=== PATIENT | male | born 1945 | race Caucasian/White ===

== ENCOUNTER → 2020-10-03 11:17 | Outpatient (CLI) | payer MEDICARE, SELFPAY ==
--- NOTE | ~2020-10-03 | XR_ITS ---
EXAMINATION: XR chest 2V EXAM DATE: 10/03/2020 11:39 INDICATION: R05 - Cough . TECHNIQUE: Frontal and lateral projections of the chest obtained and reviewed. There is no prior padmaja dy for comparison. FINDINGS: The lungs are clear. There are no pleural effusions. The cardiomediastinal silhouette is within normal limits. There is no pneumothorax suspected. Mild to moderate thoracic spondylosis. IMPRESSION: No acute cardiopulmonary findings. Reviewed, dictated and finalized at location B. 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
== END ==
PROVIDERS: PCP Family Medicine; Visit Provider Nurse Practitioner
DX: R05 Cough (principal)
CPT/HCPCS: 71046

== ENCOUNTER 2022-08-08 05:43 | Emergency (ER) | payer MEDICARE, SELFPAY ==
--- NOTE | ~2022-08-08 | XR_ITS ---
EXAMINATION: XR chest 2V DATE: 08/08/2022 06:36 INDICATION: Cough. TECHNIQUE: Frontal and lateral views of the chest were obtained. COMPARISON: Chest 2 views 10/03/2020 FINDINGS: There are mild airspace opacities in the lower lung zones. No pleural effusion or pneumotho rax. The heart size is normal. IMPRESSION: 1. Mild airspace opacities in the lower lung zones, consistent with atelectasis versus pneumonia. Reviewed, dictated and finalized at location A.
[2022-08-08 05:47] VITALS: BP 170/80; PULSE 89; RESP 18; TEMP 36.9; O2SAT 97
--- NOTE | 2022-08-08 06:09 | PC.NURSE ---
COVID and Flu swab done and sent to lab at 06:08
--- NOTE | 2022-08-08 06:11 | ED.GENADULT ---
HPI - General Adult General Chief complaint: Upper Respiratory Infection Stated complaint: cough, neck pain Time Seen by Provider: 08/08/22 05:45 History of Present Illness HPI narrative: 76-year-old male presenting the emergency department for evaluation of cough and congestion for approximately 2 weeks and a sore neck that started 2 days ago. Patient reports 2 days ago he woke up and felt he was sleeping on his back without a pillow. Patient noticed that he had increased soreness of his neck and the symptoms have persisted. Patient denies any falls or injuries, patient denies any associated numbness or weakness. Related Data Home Medications Medication Instructions Recorded Confirmed multivitamin 1 tablet PO DAILY 10/04/19 12/12/21 cholecalciferol (vitamin D3) 50 50 mcg PO DAILY 12/11/20 12/12/21 mcg (2,000 unit) capsule omega 3 350 mg-dha 235 mg-epa 90 cap PO .qd 02/14/21 12/12/21 mg-fish oil 597 mg capsule,delay rel ([place]-3) Allergies Allergy/AdvReac Type Severity Reaction Status Date / Time No Known Allergies Allergy Verified 08/08/22 05:52 Review of Systems Review of Systems: CONSTITUTIONAL: Denies fever, chills, or sweats. EYES: Denies visual changes, redness, or discharge. ENT: Denies rhinorrhea, congestion, sore throat, or otalgia. CARDIOVASCULAR: Denies chest pain, palpitations, or edema. RESPIRATORY: See HPI GASTROINTESTINAL: Denies abdominal pain, nausea, vomiting, or diarrhea. GENITOURINARY: Denies dysuria or hematuria. SKIN: Denies rash or itching. MUSCULOSKELETAL: See HPI NEUROLOGIC: Denies headache, numbness, or weakness. [facility] Past Medical History Medical History Chronic low back pain without sciatica Dyslipidemia Heart murmur Unspecified osteoarthritis, unspecified site Surgical History Surgical History History of arthroscopic knee surgery 2013 right knee meniscus repair History of bilateral inguinal hernia repair 1995 History of discectomy (~1990) L4-L5 History of umbilical hernia repair 1995 Family History Family History Mother Diabetes mellitus, Onset Age: 92 Social History Social History Tobacco type: cigarettes Second hand tobacco smoke exposure: No Smoking end date: 10/05/04 Alcohol intake: current Alcohol use details: 2 beers or 2 glasses of wine consumed occasionally Substance use: never Substance use type: does not use Exam Narrative: APPEARANCE: Well appearing, no pain, no distress, well-nourished. HEAD: normocephalic, atraumatic. EYES: PERRLA/EOMI, conjunctivae clear. NOSE: Normal no drainage NECK: Supple. No adenopathy, no masses. RESPIRATORY: Airway patent, respirations nonlabored. Clear to auscultation bilaterally, no rales, rhonchi, wheezing. CARDIOVASCULAR: Regular rate and rhythm without murmurs rubs or gallops. ABDOMINAL: Soft, nontender, nondistended, normal bowel sounds MUSCULOSKELETAL: Moves all extremities. Strength/ROM intact, No edema, No calf tenderness. No midline neck tenderness to palpation. Tenderness of the lateral neck muscles and into shoulders. NEURO: Alert. Cranial nerves II through XII intact. Good gait. Good coordination SKIN: Warm, dry. Normal Color PSYCHIATRIC: Normal affect/mood. Course Course Emergency Course: Chest x-ray showed atelectasis versus pneumonia. Patient did feel improved with treatment. Patient was encouraged of close follow-up with his primary care physician. All questions and concerns were addressed. Vital Signs Vital signs: Vital Signs Temperature 98.5 F 08/08/22 05:47 Pulse Rate 89 08/08/22 05:47 Respiratory Rate 18 08/08/22 05:47 Blood Pressure 170/80 H 08/08/22 05:47 Pulse Oximetry 97 08/08/22 05:47 Oxygen Delivery Room Air
[2022-08-08] MEDS: HYDROcodone/acetaminophen (*CRX) 5-325 MG TABLET 1 TAB PO (06:24)
[2022-08-08] MEDS: KETOROLAC 30 MG/ML VIAL (*BKC) IM (06:25)
[2022-08-08] MEDS: CYCLOBENZAPRINE HCL 10 MG TABLET PO (06:40)
[2022-08-08 06:48] LABS: Influenza A QL RT-PCR Negative (Negative); Influenza B QL RT-PCR Negative (Negative); SARS-CoV-2 RNA PCR Negative
[2022-08-08 07:16] VITALS: BP 136/68; PULSE 73; RESP 14; O2SAT 92
== END 2022-08-08 07:18 | disposition home or self-care (01) ==
PROVIDERS: Emergency Provider Emergency Medicine; PCP Family Medicine
DX: R05.9 Cough, unspecified (principal); M43.6 Torticollis; Z20.822 Contact with and (suspected) exposure to COVID-19; E78.5 Hyperlipidemia, unspecified; M19.90 Unspecified osteoarthritis, unspecified site; Z87.891 Personal history of nicotine dependence
CPT/HCPCS: 71046; 87502; 96372; 99283; A9270; J1885; U0003; U0005

== ENCOUNTER 2023-04-30 12:33 | Outpatient (CLI) | payer MEDICARE, SELFPAY ==
--- NOTE | ~2023-04-30 | US_ITS ---
EXAMINATION: US venous doppler [facility] DATE: 04/30/2023 13:16 INDICATION: Left lower limb pain. Other specified soft tissue disorders TECHNIQUE: Grayscale ultrasound images without and with compression and Doppler ultrasound images of the left lower extremity veins were obtained. COMPARISON: 01/08/2012 FINDINGS: The visualized portions of left common femoral vein, profunda (deep) femoral vein, femoral vein, popl iteal vein, peroneal veins, posterior tibial veins, gastrocnemius vein and greater saphenous vein out flow are patent. IMPRESSION: 1. No deep venous thrombosis in the left lower limb. Reviewed, dictated and finalized at location A.
== END 2023-04-30 12:34 | disposition home or self-care (01) ==
PROVIDERS: PCP Family Medicine; Visit Provider Nurse Practitioner Family
DX: M79.89 Other specified soft tissue disorders (principal)
CPT/HCPCS: 93971

== ENCOUNTER 2023-08-13 01:30 | Emergency (ER) | payer MEDICARE, SELFPAY ==
--- NOTE | ~2023-08-13 | CT_ITS ---
CT of the Abdomen and Pelvis: Indication: Left flank pain Technique: 2.5 mm axial scans were obtained through the abdomen and pelvis following intravenous adm inistration of 100 cc of Omnipaque 350. Dose reduction technique was used on this scan by utilizing a utomated exposure control and iterative reconstruction technique. The dose-length product (DLP) was 1 253.57 mGy-cm. Findings: Scans through the lung bases are unremarkable. Small hepatic cysts are present. The spleen, pancreas, gallbladder, and adrenal glands are within nor mal limits. There is a 6 mm stone at the proximal left ureter, with mild left hydroureteronephrosis. There are right parapelvic renal cysts. No definite right hydronephrosis. No right ureteral stone. Th ere are atherosclerotic calcifications of the aorta. No lymphadenopathy. No bowel obstruction or bowel wall thickening. Normal appendix. Images through the pelvis were performed. Urinary bladder unremarkable. Prostate gland is mildly enla rged. No ascites. Impression: 6 mm proximal left ureteral stone with mild left hydronephrosis. Reviewed, dictated and finalized at [facility]. E SET UP PERSON Impression: 6 mm proximal left ureteral stone with mild left hydronephrosis.
[2023-08-13 01:36] VITALS: BP 164/73; PULSE 71; RESP 18; TEMP 36.9; O2SAT 98
[2023-08-13 02:00] VITALS: BP 149/77; PULSE 71; RESP 17; O2SAT 97
--- NOTE | 2023-08-13 02:08 | ED.GENADULT ---
HPI - General Adult General Chief complaint: Urogenital-Male <Richie Mathis PA-C - Last Filed: 08/13/23 03:27> Stated complaint: flank pain <VALDEZ Dominguez Last Filed: 08/13/23 03:27> Time Seen by Provider: 08/13/23 01:57 <VALDEZ Dominguez Last Filed: 08/13/23 03:27> Source: patient <VALDEZ Dominguez Last Filed: 08/13/23 03:27> Mode of arrival: ambulatory <VALDEZ Dominguez Last Filed: 08/13/23 03:27> Limitations: no limitations <VALDEZ Dominguez Last Filed: 08/13/23 03:27> History of Present Illness HPI narrative: This is a 77-year-old male who presents to the ED with chief complaint of left flank pain onset yesterday and worse today. Reports that symptoms have been intermittent but starting to become significantly worse tonight. Reports pain is strictly limited to the left flank and pain is a 7 out of 10 right now. States he has never had anything like this before and has no history of stones. States he has frequent nocturia but this is not new for him. He also notes that today while trying to eat a piece of toast, he became nauseous and had 1 episode of vomiting. Denies dysuria, hematuria, fevers, chills, abdominal pain, chest pain, shortness of breath, cough, problems with bowel movements. <Richie Mathis PA-C - Last Filed: 08/13/23 03:27> Related Data Home medications: Home Medications Medication Instructions Recorded Confirmed multivitamin 1 tablet PO DAILY 10/04/19 04/30/23 cholecalciferol (vitamin D3) 50 50 mcg PO DAILY 12/11/20 04/30/23 mcg (2,000 unit) capsule omega 3 350 mg-dha 235 mg-epa 90 cap PO .qd 02/14/21 04/30/23 mg-fish oil 597 mg capsule,delay rel ([place]-3) <VALDEZ Dominguez Last Filed: 08/13/23 03:27> Allergies/adverse reactions: Allergies Allergy/AdvReac Type Severity Reaction Status Date / Time No Known Allergies Allergy Verified 08/13/23 02:03 <Richie Mathis PA-C - Last Filed: 08/13/23 03:27> Review of Systems Review of Systems: All systems as dictated in HPI <Richie Mathis PA-C - Last Filed: 08/13/23 03:27> [facility] Past Medical History Medical History: Medical History (Updated 08/13/23 @ 06:17 by Michael Pandya MD) Chronic low back pain without sciatica Dyslipidemia Heart murmur Left leg swelling Unspecified osteoarthritis, unspecified site Ventral hernia <Richie Mathis PA-C - Last Filed: 08/13/23 03:27> Surgical History Surgical History: Surgical History History of arthroscopic knee surgery (~2013) 2013 right knee meniscus repair History of bilateral inguinal hernia repair (~1995) 1995 History of discectomy (~1990) L4-L5 History of tonsillectomy (~1950) History of umbilical hernia repair (~1995) 1995 <Richie Mathis PA-C - Last Filed: 08/13/23 03:27> Family History Family History: Family History Mother Diabetes mellitus, Onset Age: 92 <Richie Mathis PA-C - Last Filed: 08/13/23 03:27> Social History Social History: Social History (Updated 04/30/23 @ 11:29 by Pierre Greene MA) Smoking status: Never smoker Tobacco type: cigarettes Second hand tobacco smoke exposure: No Smoking end date: 10/05/94 Alcohol intake: current Alcohol use details: 2 beers or 2 glasses of wine consumed occasionally Substance use: never Substance use type: does not use Lack of Transportation: No Lack of Food: Never True Current Housing: I Have Housing Concerned About Future Housing: No Difficulty Paying Gas/Electric Bills: No Difficulty Paying for Meds: No Currently Unemployed: No Education: High School Diploma/GED Difficulty w/ Childcare or Family Care: No <Richie Mathis PA-C - Last Filed: 08/13/23 03:27> Exam Narrative: GENERAL: Well-appearing, well-nourished, and i
[2023-08-13] MEDS: MORPHINE SULFATE (*CRX) 4 MG/ML INJ IV PUSH (02:24)
[2023-08-13] MEDS: ONDANSETRON INJ 4 MG/2 ML VIAL IV PUSH (02:25)
[2023-08-13 02:46] LABS: Basophils Percent Auto 0.2 % (0.2-1.2); Eosinophils Percent Auto 0.3 % (0-4.4); Hematocrit 43.3 % (42.0-52.0); Immature Granulocyte Absolute 0.03 K/mm3 (0.00-0.031); Immature Granulocyte Percent A 0.3 % (0-0.5); Lymphocytes Percent Auto 6.8 % (18.3-44.2); Mean Corpuscular HGB Conc 32.3 g/dl (32-36); Mean Corpuscular Hemoglobin 29.2 pg (26-34); Mean Corpuscular Volume 90.4 fl (80-100); Mean Platelet Volume 9.9 fl (7.4-10.4); Monocytes Absolute Auto 0.7 K/mm3 (0.1-0.6); Monocytes Percent Auto 7.4 % (2.6-8.5); Neutrophils Absolute Auto 7.5 K/mm3 (1.3-6.7); Platelet Count Result 176 k/mm3 (150-375); Red Blood Count 4.79 M/mm3 (4.6-6.20); Red Cell Distribution Width 12.9 % (11.5-14.5); White Blood Count 8.8 K/mm3 (4.5-10.0)
[2023-08-13 02:53] LABS: Alanine Aminotransferase 25 U/L (6-50); Albumin Level 4.2 g/dL (3.5-5.1); Alkaline Phosphatase 60 U/L (38-126); Anion Gap 3 mmol/L (8-16); Aspartate Amino Transferase 29 U/L (17-59); Bilirubin,Total 1.1 mg/dL (0.2-1.3); Blood Urea Nitrogen 20 mg/dL (9-20); Calcium 9.2 mg/dL (8.4-10.2); Carbon Dioxide 31 mmol/L (22-30); Chloride 103 mmol/L (98-107); Estimated CRCL calculation 58 ml/min; Estimated Glomerular Filt Rate > 60; Glucose 123 mg/dL (65-110); Potassium 3.8 mmol/L (3.4-5.0); Sodium 137 mmol/L (137-145)
[2023-08-13 04:00] VITALS: BP 145/70; PULSE 50; RESP 18; O2SAT 96
[2023-08-13 04:01] LABS: Appearance Urine Cloudy (Clear); Bacteria Urine None Seen /hpf; Bilirubin Urine Negative (Negative); Blood Urine 3+ (Negative); Color Urine Yellow (Yellow); Glucose Urine UA Negative (Negative); Ketones Urine 1+ mg/dL (Negative); Leukocyte Esterase Ur Negative LEU/UL (Negative); Need Manual Microscopic Reviewed; Nitrate Urine Negative (Negative); Non Pathogenic Casts 0-2; Protein Urine Trace mg/dL (Negative); RBC Urine >100 /hpf (0-2); Specific Grav Ur 1.022 (1.001-1.035); Squamous Epithelial Cell Urine None seen /hpf (Few); WBC Urine 0-5 /hpf
[2023-08-13 04:02] LABS: Add Urine Microscopic? YES
[2023-08-13 05:54] VITALS: BP 149/70; PULSE 51; O2SAT 97
[2023-08-13] MEDS: TAMSULOSIN HCL 0.4 MG CAPSULE PO (06:53)
== END 2023-08-13 06:57 | disposition home or self-care (01) ==
PROVIDERS: Physician Assistant; Emergency Provider Emergency Medicine; PCP Family Medicine
DX: N13.2 Hydronephrosis with renal and ureteral calculous obstruction (principal); E78.5 Hyperlipidemia, unspecified; M19.90 Unspecified osteoarthritis, unspecified site; Z87.891 Personal history of nicotine dependence
CPT/HCPCS: 36415; 74177; 80053; 81001; 85025; 96374; 96375; 99284; A9270; J2270; J2405; Q9967

== ENCOUNTER 2023-08-13 16:20 | Day surgery (SDC) | payer MEDICARE, SELFPAY ==
--- NOTE | ~2023-08-13 | XR_ITS ---
EXAMINATION: XR stent kub - surgery DATE: 08/13/2023 18:06 INDICATION: Left ureteral stone. TECHNIQUE: 2 intraoperative fluoroscopic views of the abdomen and pelvis were obtained. I was not pre sent. Fluoroscopy exposure time was 21 seconds. COMPARISON: CT abdomen and pelvis 08/13/2023 FINDINGS: There is a left internal ureteral stent in expected position. IMPRESSION: 1. Left internal ureteral stent in expected position. Reviewed, dictated and finalized at location E. MS MANAGER
[2023-08-13 16:27] VITALS: BP 167/67; PULSE 64; RESP 16; TEMP 36.3; O2SAT 99
[2023-08-13 16:48] VITALS: PULSE 69; RESP 17; O2SAT 98
[2023-08-13 17:00] LABS: Basophils Percent Auto 0.2 % (0.2-1.2); Eosinophils Percent Auto 0.2 % (0-4.4); Hematocrit 43.5 % (42.0-52.0); Hemoglobin 14.3 g/dL (14.0-18.0); Immature Granulocyte Absolute 0.03 K/mm3 (0.00-0.031); Immature Granulocyte Percent A 0.3 % (0-0.5); Lymphocytes Absolute Auto 0.52 K/mm3 (0.9-3.2); Lymphocytes Percent Auto 5.1 % (18.3-44.2); Mean Corpuscular HGB Conc 32.9 g/dl (32-36); Mean Corpuscular Hemoglobin 29.7 pg (26-34); Mean Corpuscular Volume 90.2 fl (80-100); Mean Platelet Volume 9.6 fl (7.4-10.4); Monocytes Absolute Auto 0.7 K/mm3 (0.1-0.6); Monocytes Percent Auto 7.1 % (2.6-8.5); Neutrophils Absolute Auto 8.9 K/mm3 (1.3-6.7); Neutrophils Percent Auto 87.1 % (45.5-73.1); Platelet Count Result 180 k/mm3 (150-375); Red Blood Count 4.82 M/mm3 (4.6-6.20); White Blood Count 10.2 K/mm3 (4.5-10.0)
--- NOTE | 2023-08-13 17:03 | ED.MALEGU ---
HPI - Male Genitourinary General Chief complaint: Urogenital-Male Stated complaint: kidney stone pain Time Seen by Provider: 08/13/23 16:46 History of Present Illness HPI Narrative: 77-year-old male reports for evaluation for intractable pain secondary to kidney stone. Patient was seen in the ED last night for left flank pain. He was found of a 6 mm proximal left ureteral stone and was discharged home with Flomax, pain and nausea control. He followed up today with Dr. Neo's NUB CARD TENDER, [place], who advised the patient to come to the ED for intervention given patient's intractable pain. Patient states his pain is currently 9 out of 10. He reports nausea but no emesis since his discharge earlier this morning. Denies fever, urinary frequency or urgency, hematuria or dysuria. Related Data Home Medications Medication Instructions Recorded Confirmed multivitamin 1 tablet PO DAILY 10/04/19 04/30/23 cholecalciferol (vitamin D3) 50 50 mcg PO DAILY 12/11/20 04/30/23 mcg (2,000 unit) capsule omega 3 350 mg-dha 235 mg-epa 90 cap PO .qd 02/14/21 04/30/23 mg-fish oil 597 mg capsule,delay rel ([place]-3) Allergies Allergy/AdvReac Type Severity Reaction Status Date / Time No Known Allergies Allergy Verified 08/13/23 16:28 Review of Systems Review of Systems: CONSTITUTIONAL: Denies fever, chills EYES: Denies visual changes, redness, or discharge. ENT: Denies rhinorrhea, congestion, sore throat, or otalgia. CARDIOVASCULAR: Denies chest pain, palpitations, or edema. RESPIRATORY: Denies cough or dyspnea. GASTROINTESTINAL: See HPI GENITOURINARY: See HPI SKIN: Denies rash or itching. MUSCULOSKELETAL: Denies back pain, joint pain, or myalgia. NEUROLOGIC: Denies headache, numbness, dizziness, or weakness. PSYCHIATRIC: Denies anxiety or depression. [facility] Past Medical History Medical History Chronic low back pain without sciatica Dyslipidemia Heart murmur Left leg swelling Unspecified osteoarthritis, unspecified site Ventral hernia Surgical History Surgical History History of arthroscopic knee surgery (~2013) 2014 right knee meniscus repair History of bilateral inguinal hernia repair (~1995) 1995 History of discectomy (~1990) L4-L5 History of tonsillectomy (~1950) History of umbilical hernia repair (~1995) 1995 Family History Family History Mother Diabetes mellitus, Onset Age: 92 Social History Social History Smoking status: Never smoker Tobacco type: cigarettes Second hand tobacco smoke exposure: No Smoking end date: 10/05/94 Alcohol intake: current Alcohol use details: 2 beers or 2 glasses of wine consumed occasionally Substance use: never Substance use type: does not use Lack of Transportation: No Lack of Food: Never True Current Housing: I Have Housing Concerned About Future Housing: No Difficulty Paying Gas/Electric Bills: No Difficulty Paying for Meds: No Currently Unemployed: No Education: High School Diploma/GED Difficulty w/ Childcare or Family Care: No Exam Narrative: GENERAL: Well-appearing, in no acute distress. Patient resting comfortably in exam bed. He is pleasant and conversational. HEAD: Normocephalic EYES: PERRLA ENT: Nares clear. Mucous membranes moist. Oropharynx without tonsillar hypertrophy exudate or other lesions. NECK: Supple. CHEST: No respiratory distress. Clear to auscultation, no adventitious breath sounds. HEART: Regular rate and rhythm. No murmur heard. Normal peripheral pulses. ABDOMEN: Soft, nontender, normal active bowel sounds. Mild left CVA tenderness. No overlying skin changes. No guarding, rebound or rigidity. EXTREMITIES: Normal range of motion. No edema. SKIN: Warm, dry, no rash. NEURO:
[2023-08-13] MEDS: MORPHINE SULFATE (*CRX) 2 MG/ML INJ IV PUSH (17:07)
[2023-08-13 17:08] LABS: Alanine Aminotransferase 25 U/L (6-50); Albumin Level 4.4 g/dL (3.5-5.1); Alkaline Phosphatase 62 U/L (38-126); Anion Gap 8 mmol/L (8-16); Aspartate Amino Transferase 30 U/L (17-59); Bilirubin,Total 1.1 mg/dL (0.2-1.3); Blood Urea Nitrogen 19 mg/dL (9-20); Calcium 8.9 mg/dL (8.4-10.2); Carbon Dioxide 29 mmol/L (22-30); Chloride 103 mmol/L (98-107); Estimated CRCL calculation 50 ml/min; Estimated Glomerular Filt Rate 54; Glucose 113 mg/dL (65-110); Sodium 140 mmol/L (137-145)
--- NOTE | 2023-08-13 17:15 | WPDANESEPP ---
Anes - Eval Pre Procedure Procedure: Operation Date: 08/13/23 18:00 Proposed Procedures p Cystoscopy with left stent placement(Left) - Angel Naqvi MD Date/Time: 08/13/23 17:15 Pre Op Diagnosis: kidney stone pain Patient Data Age: 77 Gender: M Height: 1.78 m Weight: 96 kg Last Vital Signs Temp 36.3 C L 08/13/23 16:27 Pulse 69 08/13/23 16:48 Resp 17 08/13/23 16:48 BP 167/67 H 08/13/23 16:27 Pulse Ox 98 08/13/23 16:48 Allergies Allergy/AdvReac Type Severity Reaction Status Date / Time No Known Allergies Allergy Verified 08/13/23 16:28 Home Medications Medication Instructions Recorded Confirmed Type multivitamin 1 tablet PO DAILY 10/04/19 04/30/23 History cholecalciferol (vitamin D3) 50 50 mcg PO DAILY 12/11/20 04/30/23 History mcg (2,000 unit) capsule omega 3 350 mg-dha 235 mg-epa 90 cap PO .qd 02/14/21 04/30/23 History mg-fish oil 597 mg capsule,delay rel ([place]-3) simvastatin 40 mg tablet 40 mg PO QHS #90 tabs 04/20/23 Rx hydrocodone 5 mg-acetaminophen 325 1 tablet PO Q6H PRN pain 3 days 08/13/23 Rx mg tablet #12 tabs ondansetron 4 mg disintegrating 4 mg PO Q8H PRN nausea and 08/13/23 Rx tablet vomiting #10 tabs tamsulosin 0.4 mg capsule (Flomax) 0.4 mg PO DAILY #10 caps 08/13/23 Rx Laboratory Tests 08/13/23 16:51 WBC 10.2 H K/mm3 (4.5-10.0) RBC 4.82 M/mm3 (4.6-6.20) Hgb 14.3 g/dL (14.0-18.0) Hct 43.5 % (42.0-52.0) MCV 90.2 fl (80-100) MCH 29.7 pg (26-34) MCHC 32.9 g/dl (32-36) RDW 13.0 % (11.5-14.5) Plt Count 180 k/mm3 (150-375) MPV 9.6 fl (7.4-10.4) Immature Gran % (Auto) 0.3 % (0-0.5) Neut % (Auto) 87.1 H % (45.5-73.1) Lymph % (Auto) 5.1 L % (18.3-44.2) [place] % (Auto) 7.1 % (2.6-8.5) Eos % (Auto) 0.2 % (0-4.4) Baso % (Auto) 0.2 % (0.2-1.2) Lymph # (Auto) 0.52 L K/mm3 (0.9-3.2) [place] # (Auto) 0.7 H K/mm3 (0.1-0.6) Eos # (Auto) 0.0 K/mm3 (0-0.3) Baso # (Auto) 0.0 K/mm3 (0.0-0.1) Abs Immat Gran (auto) 0.03 K/mm3 (0.00-0.031) Absolute Neuts (auto) 8.9 H K/mm3 (1.3-6.7) Absolute Nucleated RBC 0.0 K/mm3 (0.0-0.012) Nucleated RBC % 0.0 % (0.0-0.2) Sodium 140 mmol/L (137-145) Potassium 4.0 mmol/L (3.4-5.0) Chloride 103 mmol/L (98-107) Carbon Dioxide 29 mmol/L (22-30) Anion Gap 8 mmol/L (8-16) BUN 19 mg/dL (9-20) Creatinine 1.30 mg/dL (0.7-1.3) Estim Creat Clear Calc 50 ml/min Estimated GFR 54 L (59 - ) Glucose 113 H mg/dL (65-110) Calcium 8.9 mg/dL (8.4-10.2) Total Bilirubin 1.1 mg/dL (0.2-1.3) AST 30 U/L (17-59) ALT 25 U/L (6-50) Alkaline Phosphatase 62 U/L (38-126) Total Protein 8.0 g/dL (6.3-8.2) Albumin 4.4 g/dL (3.5-5.1) Patient hx anesthesia problems: none Family hx anesthesia problems: none Results Review: All pre-operative results and documents have been reviewed as part of the pre-operative evaluation. [facility] Past Medical History Medical History Chronic low back pain without sciatica Dyslipidemia Heart murmur Left leg swelling Unspecified osteoarthritis, unspecified site Ventral hernia Surgical History Surgical History History of arthroscopic knee surgery (~2013) 2013 right knee meniscus repair History of bilateral inguinal hernia repair (~1995) 1995 History of discectomy (~1990) L4-L5 History of tonsillectomy (~1950) History of umbilical hernia repair (~1995) 1995 Family History Family History Mother Diabetes mellitus, Onset Age: 92 Social History Social History Smoking status: Never smoker Tobacco type: cigarettes Second hand t
[2023-08-13 17:19] VITALS: PULSE 68; RESP 24
--- NOTE | 2023-08-13 17:23 | PM.HPGS ---
History of Present Illness History of Present Illness Consent: Risks, benefits, and alternatives have been discussed and questions answered. Patient agrees to proceed with procedure. Chief complaint: kidney stone pain Narrative: Johnie Leavitt is a 77 year old male, previously unknown to our practice until today. his poor roberta has had a rough day with a painful 6 mm left proximal ureteral stone. He was in the ER at [facility] early this morning were decision was made for outpatient therapy. He was seen in our office in [place] mid day with 10/10 left flank pain. He was instructed to come back to the ER at [facility] with this persistent pain. He has had no fevers chills or gross hematuria. Review of Systems Cardiovascular: Cardiovascular: Denies chest pain, Denies lightheadedness, Denies palpitations and Denies dyspnea Respiratory: Respiratory: Denies dyspnea Gastrointestinal: Gastrointestinal: Denies diarrhea, Denies nausea and Denies vomiting Genitourinary: Genitourinary: Denies hematuria and Denies dysuria Endocrine: Endocrine: Denies palpitations [facility] Past Medical History Medical History Chronic low back pain without sciatica Dyslipidemia Heart murmur Left leg swelling Unspecified osteoarthritis, unspecified site Ventral hernia Surgical History Surgical History History of arthroscopic knee surgery (~2013) 2013 right knee meniscus repair History of bilateral inguinal hernia repair (~1995) 1995 History of discectomy (~1990) L4-L5 History of tonsillectomy (~1950) History of umbilical hernia repair (~1995) 1995 Family History Family History Mother Diabetes mellitus, Onset Age: 92 Social History Social History Smoking status: Never smoker Tobacco type: cigarettes Second hand tobacco smoke exposure: No Smoking end date: 10/05/94 Alcohol intake: current Alcohol use details: 2 beers or 2 glasses of wine consumed occasionally Substance use: never Substance use type: does not use Lack of Transportation: No Lack of Food: Never True Current Housing: I Have Housing Concerned About Future Housing: No Difficulty Paying Gas/Electric Bills: No Difficulty Paying for Meds: No Currently Unemployed: No Education: High School Diploma/GED Difficulty w/ Childcare or Family Care: No Meds Home Medications and Allergies Home Medications Medication Instructions Recorded Confirmed Type multivitamin 1 tablet PO DAILY 10/04/19 04/30/23 History cholecalciferol (vitamin D3) 50 50 mcg PO DAILY 12/11/20 04/30/23 History mcg (2,000 unit) capsule omega 3 350 mg-dha 235 mg-epa 90 cap PO .qd 02/14/21 04/30/23 History mg-fish oil 597 mg capsule,delay rel ([place]-3) simvastatin 40 mg tablet 40 mg PO QHS #90 tabs 04/20/23 Rx hydrocodone 5 mg-acetaminophen 325 1 tablet PO Q6H PRN pain 3 days 08/13/23 Rx mg tablet #12 tabs ondansetron 4 mg disintegrating 4 mg PO Q8H PRN nausea and 08/13/23 Rx tablet vomiting #10 tabs tamsulosin 0.4 mg capsule (Flomax) 0.4 mg PO DAILY #10 caps 08/13/23 Rx Allergies Allergy/AdvReac Type Severity Reaction Status Date / Time No Known Allergies Allergy Verified 08/13/23 16:28 Vital Signs Vital Signs - 24 hr 08/13/23 16:27 08/13/23 16:48 Temperature 97.3 F L Pulse Rate 64 69 Respiratory Rate 16 17 Blood Pressure 167/67 H Pulse Oximetry 99 98 Exam Const: General: no acute distress Resp: Effort & Inspection: normal respiratory effort GI: Inspection: non-distended GI Palp: No abdominal tenderness and No Guarding due to palpation present (GI) Auscultation: normal bowel sounds Assessment and Plan Assessment and plan (1) Ureterolithiasis: Code(s): N20.1 -
--- NOTE | 2023-08-13 17:40 | P.PNAN_ITS ---
Anes - Eval Final PreProcedure Day of Procedure 08/13/23 17:40 Patient weight: normal Heart: regular rate and rhythm Lungs: clear to auscultation and normal air movement Airway: Mallampati scale class III Neurological: alert and oriented Last oral intake: >/= 8 hours ASA classification: III Emergent: yes Anesthetic plan: proceed Anesthesia type and monitoring: general GIVS and standard monitoring Results Review: All pre-operative results and documents have been reviewed as part of the pre- operative evaluation. Informed Consent: The patient's anesthetic plan and its attendant risks and benefits were discussed with the patient/family/POA. Questions were solicited and answers provided to the satisfaction of the patient/family/POA.
--- NOTE | 2023-08-13 17:43 | WPDHPUPDATE1 ---
History and Physical Update Update Date/Time: 08/13/23 17:43 History and Physical has been reviewed, including an updated exam of the patient. There are NO changes in the patient's condition. Risks, benefits, and alternatives have been discussed and questions answered. Patient agrees to proceed with procedure.
[2023-08-13] MEDS: ceFAZolin 2 GM/D5W 50 ML 2 GM/50 ML BAG IVPB (17:44)
[2023-08-13] MEDS: LIDOCAINE HCL 2% GEL UROJET 10 ML PKG MUCOUS MEM (17:57)
[2023-08-13] MEDS: KETOROLAC 15 MG/ML VIAL (*BKC) IV PUSH (18:02)
[2023-08-13 18:08] VITALS: BP 90/55; PULSE 62; RESP 14; TEMP 36.9; O2SAT 96
[2023-08-13] MEDS: LACTATED RINGERS 1,000 ML 30 ML IV CONT (18:08)
[2023-08-13 18:25] VITALS: BP 103/60; PULSE 65
[2023-08-13 18:40] VITALS: BP 111/65; PULSE 55
--- NOTE | 2023-08-18 07:24 | W.PM.PROC2 ---
Procedure Note - Detailed Date of Procedure 08/18/23 Pre-op Diagnosis Left ureteral stone Post-op Diagnosis Same Procedure Performed Cystoscopy with left ureteral stent placement Surgeon Angel Naqvi MD Anesthesia MAC Description of Procedure Patient brought to the op suite was prepped draped in routine sterile fashion while in dorsal lithotomy position after the uneventful induction of a general LMA anesthetic. Cystoscopy was undertaken with a 19 F rigid cystoscope. His left proximal ureteral stone is obstructing and contrast is still present from his recent CT scan. As result, there is no need for ureteral retrograde pyelography. A 0.035 in glidewire was advanced into the left collecting system had a 4.8 F variable length stent is positioned with the proximal coil in the renal pelvis/upper pole calyx and lower coil in the bladder. Scopes and wires removed.
== END 2023-08-13 18:48 | disposition home or self-care (01) ==
LOC: ANHED 17:03 → ANHSURGERY 17:08
PROVIDERS: Emergency Medicine; Emergency Provider Physician Assistant; PCP Family Medicine; Visit Provider Urology
PROC: (CPT 52352; principal; 2023-08-13 18:00)
DX: N20.1 Calculus of ureter (principal); E78.5 Hyperlipidemia, unspecified; E66.9 Obesity, unspecified; Z68.30 Body mass index [BMI] 30.0-30.9, adult
CPT/HCPCS: 52332; 36415; 74177; 80053; 81001; 85025; 96374; 96375; 99284; 99285; A9270; C1769; C2617; J0690; J1885; J2270; J2405; J2704; J7120; Q9967

== ENCOUNTER 2023-08-24 23:15 | Observation (INO) | payer MEDICARE, SELFPAY ==
--- NOTE | ~2023-08-24 | XR_ITS ---
EXAMINATION: XR retrograde pyelo w/stent LT DATE: 08/25/2023 12:46 INDICATION: Left internal ureteral stent placement TECHNIQUE: Fluoroscopic images from a left internal ureteral stent placement are submitted for review . 21 seconds of fluoroscopy time. FINDINGS: There is a left double-J internal ureteral stent projecting in expected position, with proximal [place] loop at the level of the renal pelvis and distal loop in the pelvis within the bladder lumen. IMPRESSION: 1. Left internal ureteral stent placement. Please refer to real-time procedural findings for detail s. Reviewed, dictated and finalized at location L. H LEADER IMPRESSION: 1. Left internal ureteral stent placement. Please refer to real-time procedur al findings for details.
--- NOTE | ~2023-08-24 | CT_ITS ---
EXAMINATION: CT abdomen pelvis wo con DATE: 08/25/2023 00:07 INDICATION: Abdominal pain. TECHNIQUE: Computed tomography (CT) of the abdomen and pelvis was performed without intravenous contr ast. Automated exposure control and iterative reconstruction technique were employed. The dose-length product was 1096.33 mGy-cm. COMPARISON: CT abdomen and pelvis 08/13/2023 FINDINGS: The visualized portions of the lung bases demonstrate mild scarring in paraspinal right low er lobe. There is mild atelectasis bilaterally. No pleural effusion. The heart size is normal. There are coronary artery calcifications. No pericardial effusion. There is a small sliding hiatal hernia. There are cysts in the liver measuring up to 11 mm. The gallbladder, spleen, pancreas, and adrenal gl ands are normal. There are peripelvic cysts in right kidney measuring up to 17 mm. There is a [address] one in left kidney. There is mild left hydronephrosis and hydroureter. There are 4 mm, 3 mm, and 2 mm stones in distal left ureter. There is diverticulosis of the colon without evidence of diverticuliti s. The appendix is normal. There are no dilated loops of bowel. Aortic atherosclerosis is noted. Ther e are no pathologically enlarged lymph nodes. There is no free intraperitoneal fluid. There are likel y changes of inguinal hernia repairs. There is severe lumbar spondylosis. IMPRESSION: 1. 4 mm, 3 mm, and 2 mm stones in distal left ureter with mild left hydronephrosis and hydroureter. 2. 2 mm nonobstructing left kidney stone. Reviewed, dictated and finalized at location E. OPERATOR IMPRESSION: 1. 4 mm, 3 mm, and 2 mm stones in distal left ureter with mild left hydronephro sis and hydroureter. 2. 2 mm nonobstructing left kidney stone.
[2023-08-24 23:19] VITALS: BP 177/85; PULSE 64; RESP 18; O2SAT 100
[2023-08-24 23:43] LABS: Basophils Percent Auto 0.3 % (0.2-1.2); Eosinophils Absolute Auto 0.1 K/mm3 (0-0.3); Eosinophils Percent Auto 1.6 % (0-4.4); Hematocrit 42.2 % (42.0-52.0); Hemoglobin 13.6 g/dL (14.0-18.0); Immature Granulocyte Absolute 0.01 K/mm3 (0.00-0.031); Immature Granulocyte Percent A 0.1 % (0-0.5); Lymphocytes Absolute Auto 0.94 K/mm3 (0.9-3.2); Lymphocytes Percent Auto 13.5 % (18.3-44.2); Mean Corpuscular HGB Conc 32.2 g/dl (32-36); Mean Corpuscular Hemoglobin 29.2 pg (26-34); Mean Corpuscular Volume 90.8 fl (80-100); Mean Platelet Volume 9.7 fl (7.4-10.4); Monocytes Absolute Auto 0.7 K/mm3 (0.1-0.6); Monocytes Percent Auto 9.7 % (2.6-8.5); Neutrophils Absolute Auto 5.2 K/mm3 (1.3-6.7); Neutrophils Percent Auto 74.8 % (45.5-73.1); Platelet Count Result 168 k/mm3 (150-375); Red Blood Count 4.65 M/mm3 (4.6-6.20); Red Cell Distribution Width 13.1 % (11.5-14.5)
[2023-08-24 23:50] LABS: Appearance Urine Clear (Clear); Bacteria Urine None Seen /hpf; Bilirubin Urine Negative (Negative); Blood Urine Trace (Negative); Color Urine Yellow (Yellow); Glucose Urine UA Negative (Negative); Ketones Urine Negative (Negative); Leukocyte Esterase Ur Negative LEU/UL (Negative); Nitrate Urine Negative (Negative); Non Pathogenic Casts 0-2; Protein Urine Negative (Negative); RBC Urine 0-2 /hpf (0-2); Specific Grav Ur 1.011 (1.001-1.035); Squamous Epithelial Cell Urine None seen /hpf (Few); Urobilinogen Urine 0.2 mg/dL (<2.0); WBC Urine 0-5 /hpf
[2023-08-24] MEDS: MORPHINE SULFATE (*CRX) 4 MG/ML INJ IV PUSH (23:51)
[2023-08-24] MEDS: ONDANSETRON INJ 4 MG/2 ML VIAL IV PUSH (23:51)
[2023-08-24] MEDS: GLYCERIN ADULT 1 SUPP.RECT RECTAL (23:51)
[2023-08-24 23:53] LABS: Add Urine Microscopic? YES; Alanine Aminotransferase 27 U/L (6-50); Albumin Level 4.1 g/dL (3.5-5.1); Alkaline Phosphatase 70 U/L (38-126); Anion Gap 9 mmol/L (8-16); Aspartate Amino Transferase 35 U/L (17-59); Bilirubin,Total 0.8 mg/dL (0.2-1.3); Blood Urea Nitrogen 20 mg/dL (9-20); Calcium 8.9 mg/dL (8.4-10.2); Carbon Dioxide 27 mmol/L (22-30); Chloride 101 mmol/L (98-107); Estimated CRCL calculation 64 ml/min; Estimated Glomerular Filt Rate > 60; Glucose 140 mg/dL (65-110); Sodium 137 mmol/L (137-145)
[2023-08-25] VITALS (28 sets, daily range): BP systolic 123–175; BP diastolic 55–80; PULSE 47–71; RESP 10–20; TEMP 35.7–36.9; O2SAT 96–100; BMI 30.8
--- NOTE | 2023-08-25 00:31 | ED.GENADULT ---
HPI - General Adult General Chief complaint: Back Pain/Injury Stated complaint: kidney stones Time Seen by Provider: 08/24/23 23:20 History of Present Illness HPI narrative: Patient presents to the emergency department with his with gradually worsening left flank pain over the past couple days. Recently had a kidney stone with lithotripsy and a stent placement. He has 6 mm stone. Stent is now removed. However he is having increasing pain. He is also complaining of constipation secondary to medications he has been taking. Took 2 Vicodin at home without improvement of his back pain. Denies traumas. Denies fevers and chills. Related Data Home Medications Medication Instructions Recorded Confirmed multivitamin 1 tablet PO DAILY 10/04/19 04/30/23 cholecalciferol (vitamin D3) 50 50 mcg PO DAILY 12/11/20 04/30/23 mcg (2,000 unit) capsule omega 3 350 mg-dha 235 mg-epa 90 cap PO .qd 02/14/21 04/30/23 mg-fish oil 597 mg capsule,delay rel ([place]-3) Allergies Allergy/AdvReac Type Severity Reaction Status Date / Time No Known Allergies Allergy Verified 08/13/23 16:28 Review of Systems Review of Systems: Review of systems negative except what is documented in the [facility] Past Medical History Medical History Chronic low back pain without sciatica Dyslipidemia Heart murmur Left leg swelling Unspecified osteoarthritis, unspecified site Ventral hernia Surgical History Surgical History History of arthroscopic knee surgery (~2013) 2013 right knee meniscus repair History of bilateral inguinal hernia repair (~1995) 1995 History of discectomy (~1990) L4-L5 History of tonsillectomy (~1950) History of umbilical hernia repair (~1995) 1995 Family History Family History Mother Diabetes mellitus, Onset Age: 92 Social History Social History Smoking status: Never smoker Tobacco type: cigarettes Second hand tobacco smoke exposure: No Smoking end date: 10/05/94 Alcohol intake: current Alcohol use details: 2 beers or 2 glasses of wine consumed occasionally Substance use: never Substance use type: does not use Lack of Transportation: No Lack of Food: Never True Current Housing: I Have Housing Concerned About Future Housing: No Difficulty Paying Gas/Electric Bills: No Difficulty Paying for Meds: No Currently Unemployed: No Education: High School Diploma/GED Difficulty w/ Childcare or Family Care: No Exam Narrative: GENERAL: Well-appearing, well-nourished, and in no acute distress. Uncomfortable HEAD: Normocephalic, atraumatic. EYES: PERRLA and EOMI. ENT: Nares clear, no rhinorrhea or epistaxis. Mucous membranes moist. NECK: Supple. CHEST: Clear to auscultation. No respiratory distress. HEART: Regular rate and rhythm. ABDOMEN: Soft, nontender, nondistended. EXTREMITIES: Normal range of motion. No edema. SKIN: Warm, dry, no rash. NEURO: No focal deficits. Alert and oriented x3. PSYCH: Normal mood and affect. Course Course Emergency Course: Urinalysis negative for infection or hematuria. CBC unremarkable. CMP with creatinine unremarkable. Vital Signs Vital signs: Vital Signs Pulse Rate 64 08/24/23 23:19 Respiratory Rate 18 08/24/23 23:19 Blood Pressure 177/85 H 08/24/23 23:19 Pulse Oximetry 100 08/24/23 23:19 Oxygen Delivery Room Air 08/24/23 23:19 Pulse Rate 55 L 08/25/23 00:46 Respiratory Rate 16 08/25/23 00:46 Blood Pressure 137/72 08/25/23 00:46 Pulse Oximetry 98 08/25/23 00:46 Oxygen Delivery Room Air 08/24/23 23:19 Medical Decision Making Vital Signs Vital Signs: Vital Signs Pulse Rate 64 08/24/23 23:19 Respiratory Rate 18 08/24/23 23:19 Bloo
--- NOTE | 2023-08-25 01:30 | PM.IMHP ---
H&P: HPI History of Present Illness Date/Time: 08/25/23 01:30 Chief Complaint: L flank pain Narrative: A 77-year-old male with past medical history significant for benign prostatic hyperplasia, chronic back pain, dyslipidemia. Patient presents to the emergency room due to worsening left flank pain initially diagnosed with 6 mm ureteral stone underwent litotripsy in the outpatient setting, this was are roughly 3 days ago however patient returns due to left flank pain. Preliminary workup was significant for CT of abdomen pelvis with retained stone. Patient denies fevers, rigors, chills has had some stomach upset. Patient has been admitted for further evaluation management and treatment. EXAMINATION: CT abdomen pelvis wo con DATE: 08/25/2023 00:07 INDICATION: Abdominal pain. TECHNIQUE: Computed tomography (CT) of the abdomen and pelvis was performed without intravenous contrast. Automated exposure control and iterative reconstruction technique were employed. The dose-length product was 1096.33 mGy-cm. COMPARISON: CT abdomen and pelvis 08/13/2023 FINDINGS: The visualized portions of the lung bases demonstrate mild scarring in paraspinal right lower lobe. There is mild atelectasis bilaterally. No pleural effusion. The heart size is normal. There are coronary artery calcifications. No pericardial effusion. There is a small sliding hiatal hernia. There are cysts in the liver measuring up to 11 mm. The gallbladder, spleen, pancreas, and adrenal glands are normal. There are peripelvic cysts in right kidney measuring up to 17 mm. There is a 2 mm stone in left kidney. There is mild left hydronephrosis and hydroureter. There are 4 mm, 3 mm, and 2 mm stones in distal left ureter. There is diverticulosis of the colon without evidence of diverticulitis. The appendix is normal. There are no dilated loops of bowel. Aortic atherosclerosis is noted. There are no pathologically enlarged lymph nodes. There is no free intraperitoneal fluid. There are likely changes of inguinal hernia repairs. There is severe lumbar spondylosis. IMPRESSION: 1. 4 mm, 3 mm, and 2 mm stones in distal left ureter with mild left hydronephrosis and hydroureter. 2. 2 mm nonobstructing left kidney stone. Review of Systems Review of Systems: L flank pain Constitutional: Constitutional: Denies chills, Denies fever(s) and Denies night sweats Eyes: Eyes: Denies change in vision ENT: Denies dysphagia and Denies odynophagia Cardiovascular: Cardiovascular: Denies chest pain, Denies radiating jaw, neck or arm pain and Denies palpitations Respiratory: Respiratory: Denies chest congestion and Denies dyspnea Gastrointestinal: Gastrointestinal: Denies abdominal pain, Denies dyspepsia, Denies heartburn, Denies diarrhea, Reports nausea and Denies vomiting Genitourinary: Genitourinary: Reports flank pain Musculoskeletal: Musculoskeletal: Reports back pain Integumentary/Breasts: Skin/Breast: Denies rash Neurologic: Denies focal weakness and Denies Sensory deficit (Neuro) Psychiatric: Psychiatric: Reports no additional psychiatric complaints and Reports as per HPI Endocrine: Endocrine: Denies cold intolerance, Denies fatigue, Denies flushing, Denies heat intolerance, Denies polyphagia, Denies polydipsia and Denies palpitations Hematologic/Lymphatic: Hematologic/Lymphatic: Reports no additional hematologic/lymphatic complaints and Reports as per HPI Allergic/Immunologic: Allergic/Immunologic: Reports no additional allergic/immunologic complaints and Reports as per HPI PMFSH Past Medical History Medical History Chronic low back pain without sciatica Dyslipidemia Heart murmur Left leg swelling Unspecified osteoarthritis, unspecified site Ventral hernia Surgical History Surgical History History of arthroscopic knee surgery (~2013) 2014 right knee me
[2023-08-25] MEDS: SODIUM CHLORIDE 0.9% IV 1,000 ML 125 ML IV CONT (03:09)
--- NOTE | 2023-08-25 09:58 | PM.IMPN ---
Progress Note: A&P Assessment and Plan (1) Hydronephrosis: Qualifiers: Hydronephrosis type: with renal calculous obstruction Qualified Code(s): N13.2 - Hydronephrosis with renal and ureteral calculous obstruction Code(s): N13.30 - Unspecified hydronephrosis Status: Acute Assessment and Plan: 08/25/23: CT of abdomen/pelvis revealing 4mm, 3mm, and 2mm stones in distal left ureter with mild left hydronephrosis and hydroureter, 2mm nonobstructing left kidney stone. Urology was consulted and is following Plan for retrograde pyelo with stent placement to left ureter today. Restarted home medications (2) Ureterolithiasis: Code(s): N20.1 - Calculus of ureter Status: Acute Assessment and Plan: 08/25/23: see above (3) Back pain: Qualifiers: Back pain laterality: left Back pain location: low back pain Chronicity: acute Sciatica presence: without sciatica Qualified Code(s): M54.50 - Low back pain, unspecified Code(s): M54.9 - Dorsalgia, unspecified Status: Acute Assessment and Plan: 08/25/23: Continue with Morphine 4mg as needed for pain control (4) Chronic low back pain without sciatica: Qualifiers: Back pain laterality: unspecified Qualified Code(s): M54.5 - Low back pain; G89.29 - Other chronic pain Code(s): M54.5 - Low back pain; G89.29 - Other chronic pain Status: Acute Assessment and Plan: 08/25/23: see above (5) Ventral hernia: Code(s): K43.9 - Ventral hernia without obstruction or gangrene Status: Acute Assessment and Plan: 08/25/23: of note Time Spent With Patient Time with patient: 25 - 35 minutes Subjective Date/time seen: 08/25/23 09:58 Interval history: This is a 77 year old male who presented to the hospital on Work up in hospital includes a UA which was negative for bacteria and an Abdomen/pelvis CT which revealed 4mm, 3mm, and 2mm stones in distal left ureter with mild left hydronephrosis and hydroureter, 2mm nonobstructing kidney stone.Urology was consulted. On examination today patientLabs essentially unremarkable with normal liver and kidney function. BG ranging 113-140. Plan today for a retrograde pyelo with stent placement to left ureter. Review of Systems Review of Systems: All systems reviewed & are unremarkable except as noted in HPI and below Constitutional: Constitutional: Reports as per HPI and Reports no additional constitutional complaints Eyes: Eyes: Reports as per HPI and Reports no additional eye complaints ENT: Reports system reviewed and no additional complaints, except as documented and Reports as per HPI Cardiovascular: Cardiovascular: Reports as per HPI and Reports no additional cardiovascular complaints Respiratory: Respiratory: Reports as per HPI and Reports no additional respiratory complaints Gastrointestinal: Gastrointestinal: Reports as per HPI and Reports no additional gastrointestinal complaints Genitourinary: Genitourinary: Reports no additional male genitourinary complaints and Reports as per HPI Musculoskeletal: Musculoskeletal: Reports no additional musculoskeletal complaints and Reports as per HPI Integumentary/Breasts: Skin/Breast: Reports system reviewed and no additional complaints, except as docu and Reports as per HPI Neurologic: Reports system reviewed and no additional complaints, except as documented and Reports as per HPI Psychiatric: Psychiatric: Reports no additional psychiatric complaints and Reports as per HPI Exam Narrative: General: In no acute distress, well nourished Head: atraumatic, no encephalopathy Eyes: EOMI, PERRLA, slcera clear ENT: moist mucous membranes, nasal passages clear Neck: supple, no JVD, no adenopathy, trachea midline Cardiac: Normal S1 and S2. No murmur, gallops or friction rubs, peripheral pulses intact. Respiratory: Lungs clear to auscultation, no adventitious lung sounds Gas
--- NOTE | 2023-08-25 10:13 | WPDURCON ---
Assessment and Plan Assessment and plan (1) Ureterolithiasis: Code(s): N20.1 - Calculus of ureter Status: Acute Assessment and Plan: Have discussed conservative management patient has had significant pain and would like definitive therapy. Will proceed with cystoscopy, left retrograde pyelogram, left ureteroscopy with stone extraction, stent placement possible laser. (2) Hydronephrosis: Qualifiers: Hydronephrosis type: with renal calculous obstruction Qualified Code(s): N13.2 - Hydronephrosis with renal and ureteral calculous obstruction Code(s): N13.30 - Unspecified hydronephrosis Status: Acute Assessment and Plan: Secondary to his ureterolithiasis. Urology Consult Note HPI Date Seen: 08/25/23 Time Seen: 07:30 Requesting Physician: Lora Ayala MD Primary Care Provider: Vika Walter MD Consult Narrative Reason for consult: Distal left ureteral calculi with hydronephrosis and pain Narrative: Johnie Leavitt is a 77 year old male who underwent a lithotripsy of a 6-7 mm left proximal ureteral stone by Dr. Naqvi. He had a stent removed at the same setting. Patient presented to the emergency room yesterday with significant left flank pain. CT scan revealed 3 stones in the distal ureter measuring 4 mm, 3 mm, and 2 mm. There is also 2 mm nonobstructing stone left kidney. He did have some hydronephrosis associated with a. They were unable to control pain in the emergency room patient was admitted for definitive treatment. At the time my evaluation the patient has not passed any of these distal stones. He would like to proceed with intervention. Review of Systems Review of Systems: All systems reviewed & are unremarkable except as noted in HPI and below PMFSH Past Medical History Medical History Chronic low back pain without sciatica Dyslipidemia Heart murmur Left leg swelling Unspecified osteoarthritis, unspecified site Ventral hernia Surgical History Surgical History History of arthroscopic knee surgery (~2013) 2013 right knee meniscus repair History of bilateral inguinal hernia repair (~1995) 1995 History of discectomy (~1990) L4-L5 History of tonsillectomy (~1950) History of umbilical hernia repair (~1995) 1995 Family History Family History Mother Diabetes mellitus, Onset Age: 92 Social History Social History Smoking status: Former smoker Tobacco type: cigarettes Second hand tobacco smoke exposure: No Alcohol intake: current Drinks per week: 1 Alcohol use details: 2 beers or 2 glasses of wine consumed occasionally Substance use: never Substance use type: does not use Lack of Transportation: No Lack of Food: Never True Current Housing: I Have Housing Concerned About Future Housing: No Difficulty Paying Gas/Electric Bills: No Difficulty Paying for Meds: No Currently Unemployed: No Education: High School Diploma/GED Difficulty w/ Childcare or Family Care: No Spiritual care concerns: No Meds Home Medications and Allergies Home Medications Medication Instructions Recorded Confirmed Type multivitamin 1 tablet PO DAILY 10/04/19 08/25/23 History cholecalciferol (vitamin D3) 50 50 mcg PO DAILY 12/11/20 08/25/23 History mcg (2,000 unit) capsule omega 3 350 mg-dha 235 mg-epa 90 2 cap PO BID 02/14/21 08/25/23 History mg-fish oil 597 mg capsule,delay rel ([place]-3) simvastatin 40 mg tablet 40 mg PO QHS #90 tabs 04/20/23 08/25/23 Rx hydrocodone 5 mg-acetaminophen 325 1 tablet PO Q6H PRN pain 3 days 08/13/23 08/25/23 Rx mg tablet #12 tabs tamsulosin 0.4 mg capsule (Flomax) 0.4 mg PO DAILY #10 caps 08/13/23 08/25/23 Rx cetirizine 10 mg cap
--- NOTE | 2023-08-25 10:16 | WPDHPUPDATE1 ---
History and Physical Update Update Date/Time: 08/25/23 10:16 History and Physical has been reviewed, including an updated exam of the patient. There are NO changes in the patient's condition. Risks, benefits, and alternatives have been discussed and questions answered. Patient agrees to proceed with procedure. Proceed with cystoscopy, left retrograde pyelogram, left ureteroscopy with stone extraction, stent placement, possible holmium laser.
[2023-08-25] MEDS: LACTATED RINGERS 1,000 ML 30 ML IV CONT ×2 (11:35→12:46)
--- NOTE | 2023-08-25 11:45 | WPDANESEPPF ---
Anes - Initial Pre Proc Eval Procedure: Operation Date: 08/25/23 15:00 Proposed Procedures p Cystoscopy, Left Ureteroscopy, Left Retrograde Pyelogram, Left Stone Extraction, Possible Left Stent Placement, Possible Holmium Laser Procedure - Uvaldo Evans MD Date/Time: 08/25/23 11:45 Surgeon: Lora Ayala MD Pre Op Diagnosis: Kidney Stones Patient Data Age: 77 Gender: M Height: 1.78 m Weight: 97.5 kg Last Vital Signs Temp 98.5 F 08/25/23 10:48 Pulse 59 L 08/25/23 10:48 Resp 20 08/25/23 10:48 BP 153/71 H 08/25/23 10:48 Pulse Ox 100 08/25/23 10:48 O2 Del Method Room Air 08/25/23 10:48 Allergies Allergy/AdvReac Type Severity Reaction Status Date / Time No Known Allergies Allergy Verified 08/13/23 16:28 Home Medications Medication Instructions Recorded Confirmed Type multivitamin 1 tablet PO DAILY 10/04/19 08/25/23 History cholecalciferol (vitamin D3) 50 50 mcg PO DAILY 12/11/20 08/25/23 History mcg (2,000 unit) capsule omega 3 350 mg-dha 235 mg-epa 90 2 cap PO BID 02/14/21 08/25/23 History mg-fish oil 597 mg capsule,delay rel ([place]-3) simvastatin 40 mg tablet 40 mg PO QHS #90 tabs 04/20/23 08/25/23 Rx hydrocodone 5 mg-acetaminophen 325 1 tablet PO Q6H PRN pain 3 days 08/13/23 08/25/23 Rx mg tablet #12 tabs tamsulosin 0.4 mg capsule (Flomax) 0.4 mg PO DAILY #10 caps 08/13/23 08/25/23 Rx cetirizine 10 mg capsule (Zyrtec) 10 mg PO DAILY 08/25/23 08/25/23 History Laboratory Tests 08/24/23 23:38 WBC 7.0 K/mm3 (4.5-10.0) RBC 4.65 M/mm3 (4.6-6.20) Hgb 13.6 L g/dL (14.0-18.0) Hct 42.2 % (42.0-52.0) MCV 90.8 fl (80-100) MCH 29.2 pg (26-34) MCHC 32.2 g/dl (32-36) RDW 13.1 % (11.5-14.5) Plt Count 168 k/mm3 (150-375) MPV 9.7 fl (7.4-10.4) Immature Gran % (Auto) 0.1 % (0-0.5) Neut % (Auto) 74.8 H % (45.5-73.1) Lymph % (Auto) 13.5 L % (18.3-44.2) [place] % (Auto) 9.7 H % (2.6-8.5) Eos % (Auto) 1.6 % (0-4.4) Baso % (Auto) 0.3 % (0.2-1.2) Lymph # (Auto) 0.94 K/mm3 (0.9-3.2) [place] # (Auto) 0.7 H K/mm3 (0.1-0.6) Eos # (Auto) 0.1 K/mm3 (0-0.3) Baso # (Auto) 0.0 K/mm3 (0.0-0.1) Abs Immat Gran (auto) 0.01 K/mm3 (0.00-0.031) Absolute Neuts (auto) 5.2 K/mm3 (1.3-6.7) Absolute Nucleated RBC 0.0 K/mm3 (0.0-0.012) Nucleated RBC % 0.0 % (0.0-0.2) Sodium 137 mmol/L (137-145) Potassium 4.0 mmol/L (3.4-5.0) Chloride 101 mmol/L (98-107) Carbon Dioxide 27 mmol/L (22-30) Anion Gap 9 mmol/L (8-16) BUN 20 mg/dL (9-20) Creatinine 1.00 mg/dL (0.7-1.3) Estim Creat Clear Calc 64 ml/min Estimated GFR > 60 (59 - ) Glucose 140 H mg/dL (65-110) Calcium 8.9 mg/dL (8.4-10.2) Total Bilirubin 0.8 mg/dL (0.2-1.3) AST 35 U/L (17-59) ALT 27 U/L (6-50) Alkaline Phosphatase 70 U/L (38-126) Total Protein 7.0 g/dL (6.3-8.2) Albumin 4.1 g/dL (3.5-5.1) Urine Color Yellow (Yellow) Urine Appearance Clear (Clear) Urine pH 6.0 (5.0-9.0) Ur Specific [place] 1.011 (1.001-1.035) Urine Protein Negative mg/dL (Negative) Urine Glucose (UA) Negative mg/dL (Negative) Urine Ketones Negative mg/dL (Negative) Ur Blood (Man) Trace (Negative) Urine Nitrate Negative (Negative) Urine Bilirubin Negative (Negative) Urine Urobilinogen 0.2 mg/dL (<2.0) Leukocyte Esterase Rfl Negative SOSA/UL (Negative) Urine RBC 0-2 /hpf (0-2) Urine WBC 0-5 /hpf Ur Squamous Epith Cells None seen /hpf (Few) Urine Bacteria None seen /hpf Urine Casts 0-2 Patient hx anesthesia problems: none Family hx anesthesia problems: none Results Review: All pre-operative results and documents have been reviewed as part of the pre-operative evaluation. [facility] Past Medical History Medical History
--- NOTE | 2023-08-25 12:05 | PC.NURSE ---
Addendum entered by Arlene Jensen RN 08/25/23 18:03: Pt returned to floor from surgery. Pt ambulated from stretcher to bed and tolerated well. Pt urinated in toiled. Urine was pink in color, with small blood clot. Pt was educated on what to expect over the next few days. Pt was discharged home with . Pt IV was removed, tip intact. Pt tolerated well. Pt dressed self and discharge instructions were explained. Pt was wheeled down to car on discharge. Pt was monitored for any changes in status. Original Note: Pt is A&O4 male who participates and contributes in plan of care. Pt having procedure today for kidney stones. Pt at bedside. Pt went to procedure at approximately 1030 this morning. Will monitor pt when he returns to the floor.
[2023-08-25] MEDS: ceFAZolin SODIUM 1 GM VIAL 2 GM IV PUSH (12:17)
[2023-08-25] MEDS: LIDOCAINE HCL 2% GEL UROJET 10 ML PKG MUCOUS MEM (12:18)
--- NOTE | 2023-08-25 12:41 | W.PM.PROC2 ---
Procedure Note - Detailed Date of Procedure 08/25/23 Pre-op Diagnosis Obstructing distal left ureteral calculi x3-4 mm, 3 mm, 2 mm Post-op Diagnosis Same Procedure Performed Cystoscopy, left retrograde pyelogram, left ureteroscopy with stone extraction, left ureteral stent placement 4.8 [place] contour Surgeon Uvaldo Evans MD Anesthesia General Description of Procedure Patient is taken to the operative suite correctly identified. Once anesthesia was obtained was placed in dorsal lithotomy position and prepped and draped usual sterile fashion. Twenty-two [place] scope was inserted the bladder. The left ureteral orifice was cannulated with a guidewire. I dilated the orifice using an 8/10 dilator. Rigid ureteral scope was then placed. There were 3 stones noted in the distal ureter. Using an escape basket we retrieved the stones and sent out for analysis. Pyelogram was then performed confirm placement of the stent. 4.8 [place] contour stent was placed with the proximal end coiled in the left renal pelvis and the distal in the bladder. Bladder was drained. 2% viscous lidocaine was inserted urethra patient is taken recovery stable condition. He will follow-up in a week's time for stent removal. Estimated Blood Loss 0 Urine Output 650 Drains Yes Packing No Pathology Yes Complications No immediate complications Condition Stable Disposition PACU
[2023-08-25] MEDS: fentaNYL CITRATE INJ (*CRX) 100 MCG/2 ML VIAL 25 MCG IV PUSH (13:30)
--- NOTE | 2023-08-25 15:30 | PM.DS ---
DS: Admitting Diagnosis Discharge Date 08/25/23 Admitting Diagnosis hydronephrosis back pain Ureterolithiasis ventral hernia chronic low back pain without sciatica DS: Summary Hospital Course Reason for hospitalization: hydronephrosis back pain Ureterolithiasis Hospital Course: This is a 77 year old male who presented to the hospital on Work up in hospital includes a UA which was negative for bacteria and an Abdomen/pelvis CT which revealed 4mm, 3mm, and 2mm stones in distal left ureter with mild left hydronephrosis and hydroureter, 2mm nonobstructing kidney stone.Urology was consulted. Patient had underwent a retrograde pyelo with stent placement to left ureter. Labs essentially normal with normal liver and kidney function. On examination today patient is alert oriented x3 sitting up in the bed. is at the bedside. His vital signs are stable, he is on room air, he is afebrile. He states that his pain is well controlled. Patient is stable for discharge he is to follow-up with urology within 2 weeks. And follow-up with his primary in 1 week. Status at Discharge Cognitive/behavioral status at discharge: Alert oriented x3 Functional status at discharge: independent ambulation Overall status at discharge: patient is back to baseline Time Spent with Patient Time attestation: Total time spent providing and/or coordinating discharge services: Exam Narrative: General: In no acute distress, well nourished Head: atraumatic, no encephalopathy Eyes: EOMI, PERRLA, sclera clear ENT: moist mucous membranes, nasal passages clear Neck: supple, no JVD, no adenopathy, trachea midline Cardiac: Normal S1 and S2. No murmur, gallops or friction rubs, peripheral pulses intact. Respiratory: Lungs clear to auscultation, no adventitious lung sounds Gastrointestinal: soft, non-distended, non-tender, normoactive bowel sounds. : voiding without difficulty. Reported 2 small blood clots when urinating otherwise normal. Extremities: moves all extremities well, no edema, good ROM, strength 5/5 Skin: clean, dry, intact. No wounds or lesions. Neuro: Alert and oriented x4, cranial nerves intact, no neuro deficits. Psych: normal mood, normal affect, interactive DS: Data Data Completed and Pending Completed studies during hospitalization: Abdomen/pelvis CT Pending studies at discharge: Pending at discharge 08/25/23 12:28 Surgical [PTH] Routine Labs on day of discharge: Labs from last 24 hours 08/24/23 23:38 WBC 7.0 RBC 4.65 Hgb 13.6 L Hct 42.2 MCV 90.8 MCH 29.2 MCHC 32.2 RDW 13.1 Plt Count 168 MPV 9.7 Immature Gran % (Auto) 0.1 Neut % (Auto) 74.8 H Lymph % (Auto) 13.5 L [place] % (Auto) 9.7 H Eos % (Auto) 1.6 Baso % (Auto) 0.3 Lymph # (Auto) 0.94 [place] # (Auto) 0.7 H Eos # (Auto) 0.1 Baso # (Auto) 0.0 Abs Immat Gran (auto) 0.01 Absolute Neuts (auto) 5.2 Absolute Nucleated RBC 0.0 Nucleated RBC % 0.0 Sodium 137 Potassium 4.0 Chloride 101 Carbon Dioxide 27 Anion Gap 9 BUN 20 Creatinine 1.00 Estim Creat Clear Calc 64 Estimated GFR > 60 Glucose 140 H Calcium 8.9 Total Bilirubin 0.8 AST 35 ALT 27 Alkaline Phosphatase 70 Total Protein 7.0 Albumin 4.1 Urine Color Yellow Urine Appearance Clear Urine pH 6.0 Ur Specific [place] 1.011 Urine Protein Negative Urine Glucose (UA) Negative Urine Ketones Negative Ur Blood (Man) Trace Urine Nitrate Negative Urine Bilirubin Negative Urine Urobilinogen 0.2 Leukocyte Esterase Rfl Negative Urine RBC 0-2 Urine WBC 0-5 Ur Squamous Epith Cells None seen Urine Bacteria None seen Urine Casts 0-2 Procedures/Treatments: retrograde pyelogram with stent placement Discharge Plan Discharge Attending physician on discharge: Keily Wilson Consulting providers: Tarun Bonilla Discharging Clinician: Cynthia Oakes Anticipated Discharge Date/Time: 08/25/23 15:37 Patient Disposition: H
--- NOTE | 2023-08-26 13:58 | WPDANESPN ---
Anes - Prog Note Post-Op Date/Time: 08/26/23 13:58 Cardiovascular status: normal Respiratory status: normal Airway patency: baseline Mental status: baseline Post-Op hydration status: normal Vital Signs: Last Vital Signs Temp 96.9 F L 08/25/23 15:45 Pulse 55 L 08/25/23 15:45 Resp 18 08/25/23 15:45 BP 155/71 H 08/25/23 15:45 Pulse Ox 100 08/25/23 15:45 O2 Del Method Room Air 08/25/23 14:30 O2 Flow Rate 8 08/25/23 13:15 Pain Score (VAS): 0/10 Laboratory Tests 08/24/23 23:38 08/24/23 23:38 Post-procedural complaints: none Patient Feedback: Patient satisfied with anesthetic care.
== END 2023-08-25 16:30 | disposition home or self-care (01) ==
LOC: ANHED 08-25 01:33 → ANH3MEDSUR 08-25 02:10
PROVIDERS: Urology; Admitting Provider Internal Medicine; Emergency Provider Emergency Medicine; PCP Family Medicine; Visit Provider Student in an Organized Health Care Education/Training Program
PROC: (CPT 52352; principal; 2023-08-25 15:00)
DX: N13.2 Hydronephrosis with renal and ureteral calculous obstruction (principal); G89.29 Other chronic pain; M54.50 Low back pain, unspecified; K59.00 Constipation, unspecified; E78.5 Hyperlipidemia, unspecified; Z87.891 Personal history of nicotine dependence; F10.90 Alcohol use, unspecified, uncomplicated; Z79.891 Long term (current) use of opiate analgesic; Z79.899 Other long term (current) drug therapy; K43.9 Ventral hernia without obstruction or gangrene; E66.9 Obesity, unspecified; Z68.30 Body mass index [BMI] 30.0-30.9, adult
CPT/HCPCS: 52352; 52332; 36415; 74176; 74420; 80053; 81001; 82365; 85025; 88300; 96361; 96374; 96375; 99285; A9270; C1758; C1769; C2617; G0378; J0690; J2270; J2405; J2704; J3010; J7030; J7120; Q9966

== ENCOUNTER 2023-09-01 09:43 | Outpatient (CLI) | payer MEDICARE, SELFPAY ==
--- NOTE | ~2023-09-01 | XR_ITS ---
XR abdomen/kub 1V 09/01/2023 10:02 Indication: Left ureteral stone Procedure: KUB Comparison: No prior studies for comparison. Findings: Left internal ureteral stent in expected position. There are pelvic phleboliths. Bowel gas pattern nonobstructive. Moderate colonic fecal loading. There is moderate lumbar spondylosis. 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 Impression: 1: Left internal ureteral stent in expected position. No definite nephrolithiasis. Reviewed, dictated and finalized at location L. [facility] Impression: 1: Left internal ureteral stent in expected position. No definite nephrolithias is.
== END 2023-09-01 09:44 | disposition home or self-care (01) ==
PROVIDERS: PCP Family Medicine; Visit Provider Nurse Practitioner
DX: N20.1 Calculus of ureter (principal); Z96.0 Presence of urogenital implants
CPT/HCPCS: 74018

== ENCOUNTER 2024-02-23 10:46 | Outpatient (CLI) | payer MEDICARE, OTHER, SELFPAY ==
--- NOTE | ~2024-02-23 | XR_ITS ---
Right Knee Technique: AP and lateral views were obtained. Clinical History: Pain Findings: No fracture or dislocation is seen. There is moderate to advanced medial compartment degene rative change, with joint space narrowing and medial osteophyte formation. There is moderate to advan jeancarlos patellofemoral compartment degenerative change. There is mild lateral compartment degenerative ch silvano.. Soft tissues are unremarkable. No joint effusion is seen. Impression: Tricompartmental degenerative change, worst at the medial and patellofemoral compartments, as detaile d above. Reviewed, dictated and finalized at location M. Impression: Tricompartmental degenerative change, worst at the medial and patellofemoral co mpartments, as detailed above.
== END 2024-02-23 10:47 | disposition home or self-care (01) ==
LOC: ANHIMG 10:51
PROVIDERS: PCP Family Medicine; Visit Provider Nurse Practitioner Family
DX: M17.11 Unilateral primary osteoarthritis, right knee (principal)
CPT/HCPCS: 73560

== ENCOUNTER 2024-02-26 07:32 | Outpatient (CLI) | payer MEDICARE, OTHER, SELFPAY ==
--- NOTE | ~2024-02-26 | MR_ITS ---
EXAMINATION: MR knee RT wo/w con DATE: 02/26/2024 08:34 INDICATION: Unilateral primary osteoarthritis, right knee. TECHNIQUE: Magnetic resonance imaging (MRI) of the right knee was performed without and with 20 mL Mu ltiHance intravenous contrast. COMPARISON: Right knee radiographs 02/23/2024 FINDINGS: Medial compartment: There is a complex tear of posterior horn of medial meniscus. There is full-thickness cartilage loss of tibial condyle involving the central and medial articular surface with cortical remodeling and mil d subchondral edema-like marrow signal intensity. There is full-thickness cartilage loss of femoral c ondyle involving the central and medial articular surface with cortical remodeling and mild subchondr al 32edema-like marrow signal intensity. Osteophytes are noted. Lateral compartment: Lateral meniscus is intact. There is a shallow partial-thickness cartilage loss of tibial condyle. Th ere is partial-thickness cartilage loss of femoral condyle, deep at the central articular surface. Th ere is mild subchondral edema-like marrow signal intensity of femoral condyle. Osteophytes are noted. Patellofemoral compartment: Patellar demonstrates shallow partial-thickness cartilage loss. There is deep cartilage fissuring of patellar lateral facet distally. There is partial-thickness cartilage loss of trochlea, deep at the c entral articular surface. Osteophytes are noted. Ligaments and tendons: Anterior and posterior cruciate ligaments are thickened with increased signal intensity. There are ch anges of prior sprains of medial collateral ligament and fibular collateral ligament characterized by thickening and increased signal intensity proximally. There is moderate patellar tendinopathy. There are partial tears of the origins of medial and lateral heads of gastrocnemius tendons. Fluid: There is a small knee joint effusion with synovitis. There is trace fluid in a Cantrell's cyst. There is mild prepatellar and superficial infrapatellar bursitis. IMPRESSION: 1. Severe chondrosis of medial compartment and moderate chondrosis of lateral and patellofemoral comp artments. 2. Tear of medial meniscus. 3. Thickening and increased signal intensity involving anterior cruciate ligament and posterior cruci ate ligaments, which may be mucoid degeneration. Partial tears may have a similar appearance. 4. Small knee joint effusion with synovitis. Reviewed, dictated and finalized at location A. IMPRESSION: 1. Severe chondrosis of medial compartment and moderate chondrosis of lateral a nd patellofemoral compartments. 2. Tear of medial meniscus. 3. Thickening and increased signal intensity involving anterior cruciate ligame nt and posterior cruciate ligaments, which may be mucoid degeneration. Partial tears may have a similar appearance. 4. Small knee joint effusion with synovitis.
== END 2024-02-26 07:33 | disposition home or self-care (01) ==
PROVIDERS: PCP Family Medicine; Visit Provider Nurse Practitioner Family
DX: M17.11 Unilateral primary osteoarthritis, right knee (principal); M94.261 Chondromalacia, right knee; S83.241A Other tear of medial meniscus, current injury, right knee, initial encounter; M25.461 Effusion, right knee; M65.9 Synovitis and tenosynovitis, unspecified; R26.9 Unspecified abnormalities of gait and mobility; X58.XXXA Exposure to other specified factors, initial encounter
CPT/HCPCS: 73723; A9577

== ENCOUNTER 2024-03-31 10:04 | Outpatient (CLI) | payer MEDICARE, OTHER, SELFPAY ==
--- NOTE | 2024-03-31 10:27 | ECG_ITS ---
Test Date: 2024-03-31 10:38:26 Measurements Intervals [place] Rate: 54 P: 51 GA: 226 QRS: 43 QRSD: 97 T: 51 QT: 411 QTc: 393 Interpretive Statements SINUS BRADYCARDIA WITH FIRST DEGREE AV BLOCK No previous ECG available for comparison Electronically Signed On 03-31-2024 13:37:34 CDT by Meera Das M.D.
[2024-03-31 10:36] LABS: Appearance Urine Clear (Clear); Bilirubin Urine Negative (Negative); Blood Urine Negative (Negative); Color Urine Yellow (Yellow); Glucose Urine UA Negative (Negative); Ketones Urine Negative (Negative); Leukocyte Esterase Ur Negative LEU/UL (Negative); Nitrate Urine Negative (Negative); Protein Urine Negative (Negative); Specific Grav Ur 1.022 (1.001-1.035); Urobilinogen Urine 0.2 mg/dL (<2.0)
[2024-03-31 10:44] LABS: Add Urine Microscopic? NO
== END 2024-03-31 10:05 | disposition home or self-care (01) ==
PROVIDERS: PCP Family Medicine; Visit Provider Orthopaedic Surgery
DX: R01.1 Cardiac murmur, unspecified (principal); I10 Essential (primary) hypertension; R53.83 Other fatigue; E78.5 Hyperlipidemia, unspecified; M17.11 Unilateral primary osteoarthritis, right knee; R00.1 Bradycardia, unspecified; I44.0 Atrioventricular block, first degree
CPT/HCPCS: 81003; 93005

== ENCOUNTER 2024-04-08 10:20 | Outpatient (CLI) | payer MEDICARE, OTHER, SELFPAY ==
--- NOTE | ~2024-04-08 | XR_ITS ---
Left ankle Technique: AP, oblique, and lateral views were obtained. Clinical History: Pain Findings: No acute fracture or dislocation is seen. Osseous alignment is anatomic. Ankle mortise and other visualized joint spaces are preserved. Soft tissues are otherwise unremarkable. Impression: Unremarkable left ankle. Reviewed, dictated and finalized at location . Impression: Unremarkable left ankle.
== END 2024-04-08 10:21 ==
PROVIDERS: PCP Family Medicine; Visit Provider Nurse Practitioner Family
DX: M25.472 Effusion, left ankle (principal); M79.89 Other specified soft tissue disorders
CPT/HCPCS: 73610

== ENCOUNTER 2024-04-14 13:54 | Outpatient (CLI) | payer MEDICARE, OTHER, SELFPAY ==
--- NOTE | 2024-04-14 15:04 | ECG_ITS ---
Test Date: 2024-04-14 15:30:35 Measurements Intervals [place] Rate: 54 P: 51 WV: 233 QRS: 34 QRSD: 99 T: 34 QT: 412 QTc: 393 Interpretive Statements SINUS BRADYCARDIA WITH FIRST DEGREE AV BLOCK BORDERLINE ECG Compared to ECG 03/31/2024 10:38:26 No significant changes Electronically Signed On 04-14-2024 15:57:19 CDT by Judd Garcia D.O.
[2024-04-14 15:53] LABS: Basophils Percent Auto 0.5 % (0.2-1.2); Eosinophils Absolute Auto 0.2 K/mm3 (0-0.3); Eosinophils Percent Auto 2.5 % (0-4.4); Hematocrit 44.2 % (42.0-52.0); Hemoglobin 14.9 g/dL (14.0-18.0); Immature Granulocyte Absolute 0.02 K/mm3 (0.00-0.031); Immature Granulocyte Percent A 0.3 % (0-0.5); Lymphocytes Absolute Auto 1.29 K/mm3 (0.9-3.2); Lymphocytes Percent Auto 21.3 % (18.3-44.2); Mean Corpuscular HGB Conc 33.7 g/dl (32-36); Mean Corpuscular Hemoglobin 30.3 pg (26-34); Mean Platelet Volume 9.9 fl (7.4-10.4); Monocytes Absolute Auto 0.5 K/mm3 (0.1-0.6); Monocytes Percent Auto 8.6 % (2.6-8.5); Neutrophils Absolute Auto 4.1 K/mm3 (1.3-6.7); Neutrophils Percent Auto 66.8 % (45.5-73.1); Platelet Count Result 166 k/mm3 (150-375); Red Blood Count 4.91 M/mm3 (4.6-6.20); Red Cell Distribution Width 12.9 % (11.5-14.5); White Blood Count 6.1 K/mm3 (4.5-10.0)
[2024-04-14 16:04] LABS: INR 1.1; Partial Thromboplastin Time 33.3 Seconds (22.3-36.8); Prothrombin Time 14.3 Seconds (11.1-14.7)
[2024-04-14 16:10] LABS: Albumin Level 4.6 g/dL (3.5-5.1); Anion Gap 8 mmol/L (4-12); Blood Urea Nitrogen 22 mg/dL (9-20); Calcium 9.2 mg/dL (8.4-10.2); Carbon Dioxide 31 mmol/L (22-30); Chloride 102 mmol/L (98-107); Estimated Glomerular Filt Rate > 60; Glucose 88 mg/dL (65-110); Sodium 141 mmol/L (137-145)
[2024-04-14 16:41] LABS: Urine Cotinine NEGATIVE
[2024-04-14 16:58] LABS: MRSA (PCR) NOT DETECTED (NOT DETECTE)
[2024-04-14 17:46] LABS: Hemoglobin A1C 5.4 % (<5.7)
== END 2024-04-14 13:55 | disposition home or self-care (01) ==
LOC: ANHSURGERY 13:58
PROVIDERS: PCP Family Medicine; Visit Provider Orthopaedic Surgery
DX: Z01.818 Encounter for other preprocedural examination (principal); M17.11 Unilateral primary osteoarthritis, right knee; I44.0 Atrioventricular block, first degree
CPT/HCPCS: 80048; 80307; 82040; 83036; 85025; 85610; 85730; 86850; 86900; 86901; 87641; 93005

== ENCOUNTER 2024-04-26 01:34 | Day surgery (SDC) | payer MEDICARE, OTHER, SELFPAY ==
[2024-04-14 14:17] VITALS: BP 150/76; PULSE 60; RESP 16; TEMP 36.6; O2SAT 96; BMI 32.2
--- NOTE | 2024-04-14 14:34 | PC.NURSE ---
Report to the Outpatient Waiting Room, entrance under the green pavilion located off [facility], at time ___6:00AM____ on date __04/26/24 . Planned Procedure Time: ___7:30AM . Time changes happen often and if your time is changed the preop area will call you the afternoon before. - You and your visitor will be asked to self-screen and do not enter if you have any COVID symptoms. - A mask is optional within the hospital at this time. Patients may have clear liquids (water, carbonated beverages, clear teas, apple juice) until 3 hours prior to surgery with a maximum of 20 ounces. - No food from midnight until time of surgery. Take the following medications with a SIP of water the morning of surgery: ___NONE DO NOT STOP ANY OF YOUR OTHER PRESCRIPTION MEDICATIONS PRIOR TO SURGERY ?EXCEPT THE FOLLOWING Medications to discontinue per physician ___HOLD ALEVE & ALL VITAMINS/SUPPLEMENTS 7 DAYS PRE-OP PER DR PEARL Date to take last dose 04/18/24 Please no make-up, nail arabic, hairspray, perfume, deodorant, or body powder the day of surgery. No jewelry (including any body piercings) or valuables the day of surgery, leave them at home. Please take a shower or bath the night before, or the morning of, surgery with an antibacterial soap. Wear comfortable, loose fitting clothing. - Jewelry must be removed prior to entering the operating room. Rings and piercings that are not removed may be cut off. - The hospital will not accept responsibility for valuables. - Please leave all valuables, including medications, at home the day of surgery. If you are going home after surgery, a licensed route delivery driver must drive you home. - NO public transportation without another adult if you receive anesthesia. - We recommend that an adult stay with you for 24 hours following discharge. - We also recommend that you do not drive, make important decision, drink alcoholic beverages, or take any drugs that were not prescribed by your health care provider for at least 24 hours after your discharge time. Follow any additional instructions given to you from your surgeon. TOTAL JOINT CLASS 04/20/24 HIBICLENS PRE-OP If you or anyone in your household have experienced Covid symptoms in the past week, please notify your surgeon or the nurse liaison at the phone number below for possible testing. Telephone instructions given to ___PATIENT & WIFE and asked if any additional questions and then verbalized understanding. Patient advised to call surgeon office or pre surgery nurse liaison [phone] if any additional questions.
[2024-04-26] VITALS (11 sets, daily range): BP systolic 126–173; BP diastolic 58–107; PULSE 55–75; RESP 14–22; TEMP 36.3–36.9; O2SAT 93–100
--- NOTE | ~2024-04-26 | XR_ITS ---
EXAMINATION: [id number] DATE: 04/26/2024 10:37 CDT INDICATION: Right knee arthroplasty TECHNIQUE: 2 views right knee FINDINGS: There is a right total knee arthroplasty in expected position. Subcutaneous gas with fluid and air in the joint and overlying skin musa are consistent with recent surgery. No evidence of p eriprosthetic fracture. IMPRESSION: 1. Recent ] total knee arthroplasty. Reviewed, dictated and finalized at location B.
[2024-04-26] MEDS: ACETAMINOPHEN 500 MG TABLET 1000 MG PO (06:50)
[2024-04-26] MEDS: LACTATED RINGERS 1,000 ML 30 ML IV CONT ×2 (06:58→09:57)
--- NOTE | 2024-04-26 07:09 | WPDANESEPPF ---
Anes - Initial Pre Proc Eval Procedure: Operation Date: 04/26/24 07:30 Proposed Procedures p Right Total Knee Arthroplasty - Nathen Archibald MD Date/Time: 04/26/24 07:09 Surgeon: Nathen Archibald MD Pre Op Diagnosis: Rt Knee DJD Patient Data Age: 78 Gender: M Height: 1.78 m Weight: 101.9 kg Last Vital Signs Temp 97.9 F 04/14/24 14:17 Pulse 60 04/14/24 14:17 Resp 16 04/14/24 14:17 BP 150/76 H 04/14/24 14:17 Pulse Ox 96 04/14/24 14:17 O2 Del Method Room Air 04/14/24 14:17 Allergies Allergy/AdvReac Type Severity Reaction Status Date / Time No Known Allergies Allergy Verified 04/26/24 07:06 Home Medications Medication Instructions Recorded Confirmed Type multivitamin 1 tablet PO DAILY 10/04/19 04/26/24 History cholecalciferol (vitamin D3) 50 50 mcg PO DAILY 12/11/20 04/26/24 History mcg (2,000 unit) capsule tamsulosin 0.4 mg capsule (Flomax) 0.4 mg PO DAILY #10 caps 08/13/23 04/26/24 Rx cetirizine 10 mg capsule (Zyrtec) 10 mg PO DAILY 08/25/23 04/26/24 History simvastatin 40 mg tablet 40 mg PO QHS #90 tabs 11/18/23 04/26/24 Rx flaxseed 1,000 mg capsule 1,000 mg PO DAILY 04/14/24 04/26/24 History ncpvbrjcqgt-ekvyqzkvj-tng C-Mn 500 1 cap PO BID 04/14/24 04/26/24 History mg-400 mg capsule magnesium oxide 400 mg PO DAILY 04/14/24 04/26/24 History naproxen sodium 220 mg capsule 220 mg PO Q12H PRN Pain 04/14/24 04/26/24 History (Aleve) omega 2-rrt-xem-fish oil 1,200 mg 1 cap PO DAILY 04/14/24 04/26/24 History (144 mg-216 mg) capsule (Fish Oil) Patient hx anesthesia problems: none Family hx anesthesia problems: none Results Review: All pre-operative results and documents have been reviewed as part of the pre-operative evaluation. PMFSH Past Medical History Medical History BPH loc w/o ur obs/LUTS Chronic low back pain without sciatica Dyslipidemia Heart murmur Knee pain, right Left leg swelling Migraine Osteoarthritis of right knee Tear of medial meniscus of knee Unspecified osteoarthritis, unspecified site (~08/2023) Ureterolithiasis Surgical History Surgical History History of arthroscopic knee surgery (~2013) 2013 right knee meniscus repair History of bilateral inguinal hernia repair (~1995) 1995 History of cystoscopy (~08/2023) 08/25/23 - Cystoscopy, left retrograde pyelogram, left ureteroscopy with stone extraction, left ureteral stent placement 08/18/23: Cystoscopy with left ureteral stent placement History of discectomy (~1990) L4-L5 History of tonsillectomy (~1950) History of umbilical hernia repair (~1995) 1995 Family History Family History Mother Diabetes mellitus, Onset Age: 92 Social History Social History Social History: Caffeine-coffee Smoking packs per day: 2 Smoking cigarettes per day: 40.0 Years smoked: 25 Smoking pack-years: 50.00 Smoking status: Former smoker Tobacco type: cigarettes Second hand tobacco smoke exposure: No Smoking end date: 02/03/92 Alcohol intake: current Drinks per week: 1 Alcohol use details: 2 beers or 2 glasses of wine consumed occasionally Substance use: never Substance use type: does not use Lack of Transportation: No Lack of Food: Never True Current Housing: I Have Housing Concerned About Future Housing: No Difficulty Paying Gas/Electric Bills: No Difficulty Paying for Meds: No Currently Unemployed: No Education: High School Diploma/GED Difficulty w/ Childcare or Family Care: No Living arrangements: with family Additional living arrangements comments: Gender identity (if verbalized by the patient): Male Spiritual care concerns: No Anes - Eval Final PreProcedure Day of Procedure
--- NOTE | 2024-04-26 07:13 | WPDANESPNB ---
Anes - Peripheral Nerve Block Date/Time: 04/26/24 07:13 I have discussed with the patient/family/POA the placement of a peripheral nerve block for post-operative pain management, including associated risks, benefits, complications, and side effects. Alternative methods of post-operative analgesia were detailed. Questions were solicited and answers provided to the satisfaction of the patient/family/POA. Time-Out: A pre-procedural Time-Out was completed immediately before starting the procedure and confirmed: Patient Identification, Site, Procedure, Patient Position and the Availability of Requisite Equipment. Clinical Indications: Acute post-operative pain management requested by the operative surgeon. Nerve Block Insertion Note Anes-nerve block: adductor canal right Patient position: supine Skin prep: chlorhexidine Needle: 22 gauge, stimulating, insulated echogenic needle. Needle length: 80 mm Technique: ultrasound Injectate: other (Bupiv 0.5%, 12 mls. ) Observations: tolerated well Complications: none Procedure start time:: 729 Procedure end time::
--- NOTE | 2024-04-26 07:18 | WPDHPUPDATE1 ---
History and Physical Update Update Date/Time: 04/26/24 07:18 History and Physical has been reviewed, including an updated exam of the patient. There are NO changes in the patient's condition. Risks, benefits, and alternatives have been discussed and questions answered. Patient agrees to proceed with procedure.
[2024-04-26] MEDS: TRANEXAMIC ACID 1,000MG/ISO100 1,000 MG/100 ML BAG 200 MG IVPB (07:45)
[2024-04-26] MEDS: ceFAZolin 2 GM/D5W 50 ML 2 GM/50 ML BAG IVPB ×3 (07:57→23:52)
[2024-04-26] MEDS: SODIUM CHLORIDE 0.9% IV 37.7 ML, MORPHINE SULFATE INJ (*CRX) 2 MG, ROPivacaine HCL 1% 2... INFILTRATE (08:12)
[2024-04-26] MEDS: TRANEXAMIC ACID 1,000 MG/10 ML AMPUL 1000 MG IV PUSH (09:13)
[2024-04-26] MEDS: GENTAMICIN BONE CEMENT REFOBACIN 1 EACH TOPICAL (09:19)
--- NOTE | 2024-04-26 09:48 | W.PM.PROC2 ---
Procedure Note - Detailed Date of Procedure 04/26/24 Pre-op Diagnosis Rt Knee DJD Post-op Diagnosis Same Procedure Performed R TKA Surgeon Nathen Archibald MD Anesthesia General Description of Procedure THE RIGHT KNEE WAS PREPPED AND DRAPED IN THE STERILE FASHION. THERE WAS A 25 DEGREE FLEXION CONTRACTURE. A MIDLINE SKIN INCISION WAS MADE. A MEDIAL PARAPATELLAR ARTHROTOMY WAS MADE. THE PATELLA WAS EVERTED. THERE WAS TRICOMPARTMENT DJD. THERE WAS MINIMAL PATELLA DJD. AN INTRAMEDULLARY MANI WAS PLACED IN THE FEMUR. A DISTAL FEMORAL CUT WAS MADE IN 5 DEGREES OF VALGUS REMOVING APPROXIMATELY 12 MM OF BONE FROM THE DISTAL FEMUR. THE FEMUR WAS SIZED TO 72.5. A 72.5 FEMORAL CUTTING BLOCK WAS PLACED IN 3 DEGREES OF EXTERNAL ROTATION AND IN ALIGNMENT WITH RUFUS'S LINE AND THE TRANSEPICONDYLAR AXIS. ANTERIOR POSTERIOR AND CHAMFER CUTS WERE MADE. THE CUTS WERE EXCELLENT. NEXT AN INTRAMEDULLARY CUTTING GUIDE WAS PLACED IN THE TIBIA. A TRANS TIBIAL CUT WAS MADE ALONG THE LONG AXIS OF THE TIBIA. APPROXIMATELY 10 MM OF BONE WAS REMOVED FROM THE HIGH SIDE OF THE TIBIA. THE TIBIA WAS THEN PLANED TO A SMOOTH SURFACE. POSTERIOR FEMORAL OSTEOPHYTES WERE REMOVED FROM THE FEMORAL CONDYLES. A 83 TIBIAL TRIAL WAS PLACED IN ALIGNMENT WITH THE 1/3 MEDIAL ASPECT OF THE TIBIAL TUBERCLE. THEN A 72.5 FEMORAL TRIAL COMPONENT WAS PLACED. BOTH HAD EXCELLENT FITS. EVENTUALLY A 10 MM CR POLYETHYLENE TRIAL COMPONENT WAS PLACED. THE KNEE WAS TAKEN THROUGH A RANGE OF MOTION. THE KNEE CAME OUT TO FULL EXTENSION. THERE WAS NO ABNORMAL TILT TO THE PATELLA. THERE WAS GOOD A/P AND VARUS/VALGUS STABILITY. THERE WAS NO EXCESSIVE ROLL BACK WITH FLEXION. THE TRIAL COMPONENTS WERE REMOVED. THEN A 72.5 FEMORAL COMPONENT AND 83 TIBIAL COMPONENT WITH A 10 CR POLYETHYLENE COMPONENT WERE CEMENTED INTO PLACE. ONCE THE CEMENT WAS HARD THE KNEE WAS TAKEN THROUGH A ROM AGAIN AND FOUND TO BE STABLE WITH NO PATELLA TILT NO EXCESSIVE ROLL BACK WITH FLEXION AND GOOD STABILITY WITH COMPLETE AND FULL EXTENSION. THE KNEE WAS IRRIGATED WITH STERILE BETADINE AND WATER FOR ABOUT 3 MINUTES. THE BLEEDERS WERE CAUTERIZED. THE ARTHROTOMY WAS REPAIRED WITH NUMBER 1 VICRYL. THE SUB CUTANEOUS LAYER WITH 2-0 VICRYL AND THE SKIN WITH FAISAL. THE WOUND WAS WASHED AND A STERILE DRESSING WAS APPLIED. PATIENT WAS EXTUBATED. Estimated Blood Loss -100 Pathology None sent Complications No immediate complications Condition Stable Disposition PACU
[2024-04-26] MEDS: fentaNYL CITRATE INJ (*CRX) 100 MCG/2 ML VIAL 25 MCG IV PUSH ×4 (10:07→10:18)
[2024-04-26] MEDS: MORPHINE SULFATE INJ (*CRX) 10 MG/ML AMP 2 MG IV PUSH ×4 (10:40→11:13)
[2024-04-26] MEDS: SODIUM CHLORIDE 0.9% IV 1,000 ML 125 ML IV CONT (11:22)
--- NOTE | 2024-04-26 11:51 | PC.NURSE ---
This patient, Johnie Leavitt, was admitted to [facility] Room 315-02. Patient/family oriented to hospital policies and general routines including ID bracelet, bed and alarms, visiting hours, pain management, procedures, bathroom and other care routines, personal items, smoking policy, room service/diet, and visiting hours. Information on how to activate the Rapid Response Team has been discussed. Patient/Family are encouraged to report perceived risks to care and to ask questions if they do not understand what they are told or what they should do.
[2024-04-26] MEDS: ONDANSETRON INJ 4 MG/2 ML VIAL IV PUSH ×3 (12:24→20:23)
--- NOTE | 2024-04-26 12:31 | ADMGEN ---
This patient, Johnie Leavitt, was admitted to [facility] Room 314-01. Patient/family oriented to hospital policies and general routines including ID bracelet, bed and alarms, visiting hours, pain management, procedures, bathroom and other care routines, personal items, smoking policy, room service/diet, and visiting hours. Information on how to activate the Rapid Response Team has been discussed. Patient/Family are encouraged to report perceived risks to care and to ask questions if they do not understand what they are told or what they should do.
[2024-04-26] MEDS: SENNA/DOCUSATE SODIUM TABLET 2 TAB PO (17:18)
[2024-04-26] MEDS: IBUPROFEN IV 800 MG/200 ML 800 MG/200 ML BAG 400 MG IVPB (20:23)
[2024-04-26] MEDS: FAMOTIDINE 20 MG TABLET PO (20:23)
[2024-04-26] MEDS: ASPIRIN 325 MG ENTERIC TABLET PO (20:23)
[2024-04-27 00:12] VITALS: BP 135/65; PULSE 68; RESP 20; TEMP 36.7; O2SAT 97
[2024-04-27] MEDS: oxyCODONE/ACETAMINOPHEN (*CRX) 5-325 MG TABLET 1 TABLET PO ×2 (01:47→06:20)
[2024-04-27 05:07] VITALS: BP 122/58; PULSE 60; RESP 18; TEMP 36.2; O2SAT 97
[2024-04-27 06:53] LABS: Basophils Percent Auto 0.2 % (0.2-1.2); Eosinophils Percent Auto 0.4 % (0-4.4); Hematocrit 40.3 % (42.0-52.0); Hemoglobin 13.1 g/dL (14.0-18.0); Immature Granulocyte Absolute 0.04 K/mm3 (0.00-0.031); Immature Granulocyte Percent A 0.4 % (0-0.5); Lymphocytes Absolute Auto 0.97 K/mm3 (0.9-3.2); Mean Corpuscular HGB Conc 32.5 g/dl (32-36); Mean Corpuscular Hemoglobin 29.8 pg (26-34); Mean Corpuscular Volume 91.6 fl (80-100); Monocytes Absolute Auto 1.2 K/mm3 (0.1-0.6); Monocytes Percent Auto 12.3 % (2.6-8.5); Neutrophils Absolute Auto 7.4 K/mm3 (1.3-6.7); Neutrophils Percent Auto 76.7 % (45.5-73.1); Platelet Count Result 171 k/mm3 (150-375); Red Cell Distribution Width 12.9 % (11.5-14.5); White Blood Count 9.7 K/mm3 (4.5-10.0)
[2024-04-27 07:12] LABS: Anion Gap 7 mmol/L (4-12); Blood Urea Nitrogen 16 mg/dL (9-20); Calcium 8.4 mg/dL (8.4-10.2); Carbon Dioxide 31 mmol/L (22-30); Chloride 102 mmol/L (98-107); Estimated CRCL calculation 70 ml/min; Estimated Glomerular Filt Rate > 60; Glucose 99 mg/dL (65-110); Potassium 4.1 mmol/L (3.4-5.0); Sodium 140 mmol/L (137-145)
[2024-04-27] MEDS: ceFAZolin 2 GM/D5W 50 ML 2 GM/50 ML BAG IVPB (08:12)
[2024-04-27] MEDS: ASPIRIN 325 MG ENTERIC TABLET PO (08:12)
[2024-04-27] MEDS: TAMSULOSIN HCL 0.4 MG CAPSULE PO (08:12)
[2024-04-27] MEDS: CHOLECALCIFEROL 1,000 UNITS TABLET 2000 UNITS PO (08:12)
[2024-04-27] MEDS: SENNA/DOCUSATE SODIUM TABLET 2 TAB PO (08:12)
[2024-04-27] MEDS: FAMOTIDINE 20 MG TABLET PO (08:12)
[2024-04-27] MEDS: CELECOXIB 200 MG CAPSULE PO (08:12)
[2024-04-27] MEDS: ONDANSETRON INJ 4 MG/2 ML VIAL IV PUSH (08:20)
[2024-04-27] MEDS: HYDROmorphone HCL INJ (*CRX) 1 MG/ML SYR 0.5 MG IV PUSH (08:21)
--- NOTE | 2024-04-27 08:27 | PM.PNORT ---
Progress Note: A&P Assessment and Plan (1) S/P total knee arthroplasty: Code(s): Z96.659 - Presence of unspecified artificial knee joint Status: Acute Assessment and Plan: POSD 1 DOING WELL. OK TO DC HOME F/U IN 3 WEEKS Subjective Subjective Date/Time Seen: 04/27/24 08:27 Interval history: POD 1 DOING WELL. NO CALF PAIN. GOOD PROGRESS WITH PT. OK TO DC HOME F/U IN 3 WEEKS Exam Extrem: Other: VSS AFEBRILE DRESSING DRY NV INTACT NEG HOMANS SIGN CALF SOFT NON TENDER Objective Data Vital Signs Vital Signs: Vital Signs - 24 hr 04/26/24 09:57 04/26/24 10:10 04/26/24 10:25 Temperature 36.9 C Pulse Rate 75 71 69 Respiratory Rate 16 18 20 Blood Pressure 170/73 H 173/71 H 141/107 H Pulse Oximetry 99 100 100 Oxygen Delivery Simple Face Mask Simple Face Mask Simple Face Mask Oxygen Flow Rate 6 6 6 04/26/24 10:41 04/26/24 10:55 04/26/24 11:10 Temperature Pulse Rate 63 61 63 Respiratory Rate 16 16 18 Blood Pressure 155/103 H 162/80 H 164/72 H Pulse Oximetry 100 100 98 Oxygen Delivery Room Air Room Air Room Air Oxygen Flow Rate 04/26/24 11:20 04/26/24 12:22 04/26/24 13:07 Temperature 36.8 C Pulse Rate 60 55 L Respiratory Rate 15 14 Blood Pressure 162/74 H 126/58 L Pulse Oximetry 95 93 Oxygen Delivery Room Air Room Air Oxygen Flow Rate 04/26/24 14:05 04/26/24 15:29 04/26/24 21:07 Temperature 36.7 C 36.3 C L Pulse Rate 63 70 Respiratory Rate 16 22 H Blood Pressure 161/70 H 172/66 H Pulse Oximetry 99 97 Oxygen Delivery Room Air Oxygen Flow Rate 04/26/24 20:00 04/27/24 00:12 04/27/24 05:07 Temperature 36.7 C 36.2 C L Pulse Rate 68 60 Respiratory Rate 20 18 Blood Pressure 135/65 122/58 L Pulse Oximetry 97 97 Oxygen Delivery Room Air Oxygen Flow Rate Intake/Output Intake/Output: Intake & Output 04/24/24 04/25/24 04/26/24 04/27/24 23:59 23:59 23:59 23:59 Intake Total 1820 600 Balance 1820 600 Meds/Results Medications: Active Medications Generic Name Dose Route Start Last Admin Trade Name Freq PRN Reason Stop Dose Admin Acetaminophen 500 mg 04/26/24 11:22 Acetaminophen 500 Mg Tablet PO Q6H PRN Pain Rated 1-3 Aspirin 325 mg 04/26/24 11:22 04/27/24 08:12 Aspirin 325 Mg Enteric Tablet PO 325 mg Q12HR CHAYITO Administration Celecoxib 200 mg 04/26/24 11:22 04/27/24 08:12 Celecoxib 200 Mg Capsule PO 200 mg BIDWM CHAYITO Administration Diazepam 5 mg 04/26/24 11:22 Diazepam (*Crx) 5 Mg Tablet PO Q8H PRN Spasms Diphenhydramine HCl 25 mg 04/26/24 11:22 Diphenhydramine Hcl Inj 50 Mg/Ml Vial IV PUSH Q6H PRN Itching Famotidine 20 mg 04/26/24 11:22 04/27/24 08:12 Famotidine 20 Mg Tablet PO 20 mg Q12HR CHAYITO Administration Hydromorphone HCl 1 mg 04/26/24 11:22 Hydromorphone Hcl Inj (*Crx) 1 Mg/Ml Syr IV PUSH Q2H PRN Breakthrough Pain Rated 7-10 or NPO Hydromorphone HCl 0.5 mg 04/26/24 11:22 04/27/24 08:21 Hydromorphone Hcl Inj (*Crx) 1 Mg/Ml Syr IV PUSH 0.5 mg Q2H PRN Administration Breakthrough Pain Rated 4-6 or NPO Cefazolin Sodium 2 gm in 50 mls @ 100 mls/hr 04/26/24 16:00 04/27/24 08:12 Ancef 2 Gm/D5w 50 Ml IVPB 04/27/24 08:29 100 mls/hr Q8H CHAYITO Administration Ibuprofen 800 mg in 200 mls @ 400 mls/hr 04/26/24 11:22 04/26/24 20:53 Caldolor 800 Mg/200 Ml IVPB Infused Q6H PRN Infusion Breakthrough Pain Rated 1-3 or NPO Naloxone HCl 0.1 mg 04/26/24 11:22 Naloxone Hcl 0.4 Mg/Ml Vial IV PUSH Q2M PRN Opiate Reversal Ondansetron HCl 4 mg 04/26/24 11:22 04/27/24 08:20 Ondansetron Inj 4 Mg/2 Ml Vial IV PUSH 4 mg Q4H PRN Administration Nausea And Vomiting Oxycodone/Acetaminophen 1 tablet 04/26/24 11:22 04/27/24 06:20 Oxycodone/Acetaminophen (*Crx) 5-325 Mg Tablet PO 1 tablet Q4H PRN Administration Pain Rated 4-6 Oxycodone/Acetaminophen
--- NOTE | 2024-04-27 08:29 | PM.DS ---
DS: Admitting Diagnosis Discharge Date 04/27/24 Admitting Diagnosis RIGHT KNEE DJD DS: Discharge Diagnosis Discharge Diagnosis (1) S/P total knee arthroplasty: Code(s): Z96.659 - Presence of unspecified artificial knee joint Status: Acute DS: Summary Hospital Course Reason for hospitalization: R TKA Hospital Course: PATIENT WAS ADMITTED S/P TOTAL KNEE ARTHROPLASTY FOR POSTOPERATIVE MEDICAL MANAGEMENT, PAIN CONTROL AND MOBILIZATION WITH PHYSICAL AND OCCUPATIONAL THERAPY. THE PATIENT PROGRESSED WELL WITH PT/OT. LABS AND VITALS REMAINED STABLE AND PAIN WELL CONTROLLED. THE PATIENT HAS BEEN CLEARED TO BE DISCHARGED HOME. FOLLOW UP APPOINTMENT SCHEDULED. DISCHARGE INSTRUCTIONS DISCUSSED AT LENGTH WITH THE PATIENT. MEDICATIONS REVIEWED. Status at Discharge Cognitive/behavioral status at discharge: STABLE Time Spent with Patient Time attestation: Total time spent providing and/or coordinating discharge services: DS: Data Data Completed and Pending Labs on day of discharge: Labs from last 24 hours 04/27/24 06:19 WBC 9.7 RBC 4.40 L Hgb 13.1 L Hct 40.3 L MCV 91.6 MCH 29.8 MCHC 32.5 RDW 12.9 Plt Count 171 MPV 10.0 Immature Gran % (Auto) 0.4 Neut % (Auto) 76.7 H Lymph % (Auto) 10.0 L Yell % (Auto) 12.3 H Eos % (Auto) 0.4 Baso % (Auto) 0.2 Lymph # (Auto) 0.97 Yell # (Auto) 1.2 H Eos # (Auto) 0.0 Baso # (Auto) 0.0 Abs Immat Gran (auto) 0.04 H Absolute Neuts (auto) 7.4 H Absolute Nucleated RBC 0.000 Nucleated RBC % 0.0 Sodium 140 Potassium 4.1 Chloride 102 Carbon Dioxide 31 H Anion Gap 7 BUN 16 Creatinine 0.90 Estim Creat Clear Calc 70 Estimated GFR > 60 Glucose 99 Calcium 8.4 Procedures/Treatments: R TKA Discharge Plan Discharge Patient Disposition: Home Health Service Discharge Instructions: Post Op Total Knee Replacement Instructions Dr. Nathen Archibald [phone] Your dressing will be changed prior to your discharge. You will be sent home with one additional dressing to be changed on post op day 7 by the home health RN. Your musa will be removed on the 14th day after surgery and steri-strips will be placed. Please practice good hand hygiene and do not touch your incision in order to prevent infection. You may shower with your dressing but do not submerge in a bath tub. Do not drive or operate machinery until you are released by Dr. Archibald. Do not walk without a walker for any reason until you are released by Dr. Archibald. Continue to use your ice machine. Please use a towel or pillow case to protect your skin before applying your ice machine. Do NOT place a pillow under your knee. You may use a pillow from the calf down if needed. This will prevent a flexion contracture postoperatively. You may begin use of your CPM machine at home if you have been given one pre-operatively. DO NOT USE WHILE YOU ARE SLEEPING. Your first post op appointment was sent to you via mail preoperatively. If you have any questions or are unable to make your appointment, please contact our office for scheduling questions. Your medications have been sent to your pharmacy. You have been sent home with pain medication. Please rock picker an over the counter stool softener to prevent constipation due to narcotic use. Please keep this in mind during your postoperative recovery. If you are not experiencing regular bowel movements, please contact our office for further instruction. Please contact our office with any questions/concerns regarding your knee at [phone]. Patient Instructions: Antibiotic Form Stand Alone Forms: General Discharge Information Follow-up/Referrals: Nathen Archibald MD [Physician] - Keep Reg. Scheduled Appt. Discharge Medications: New aspirin 325 mg Tablet,Delayed Release (Dr/Ec) 325 mg PO Q12HR 28 Days Qty: 56 0RF oxycodone-acetaminophen 5-325 mg Tablet 1 - 2 tablet PO Q4H PRN (Reason: pain) Qty: 45 0RF Continued cho
[2024-04-27 09:00] VITALS: O2SAT 93
[2024-04-27 09:07] VITALS: BP 133/52; PULSE 63; RESP 18; TEMP 36.1; O2SAT 100
[2024-04-27] MEDS: SCOPOLAMINE 1 MG PATCH 1 PATCH TRANSDERM (10:27)
== END 2024-04-27 12:30 | disposition home health service (06) ==
LOC: ANHSURGERY 06:06 → ANH3MEDSUR 11:25
PROVIDERS: PCP Family Medicine; Visit Provider Orthopaedic Surgery
PROC: (CPT 27447; principal; 2024-04-26 07:30)
DX: M17.11 Unilateral primary osteoarthritis, right knee (principal); M25.761 Osteophyte, right knee; E78.5 Hyperlipidemia, unspecified; N40.0 Benign prostatic hyperplasia without lower urinary tract symptoms; G89.29 Other chronic pain; M54.50 Low back pain, unspecified; R01.1 Cardiac murmur, unspecified; E66.9 Obesity, unspecified; Z68.31 Body mass index [BMI] 31.0-31.9, adult; Z79.1 Long term (current) use of non-steroidal anti-inflammatories (NSAID); G89.18 Other acute postprocedural pain; Z98.890 Other specified postprocedural states; Z96.0 Presence of urogenital implants; Z98.1 Arthrodesis status; Z87.891 Personal history of nicotine dependence
CPT/HCPCS: 64447; 27447; 36415; 73560; 80048; 85025; 97110; 97116; 97161; 97165; 97530; 97535; A9270; C1713; C1776; J0171; J0690; J1100; J1170; J1741; J1885; J2250; J2270; J2405; J2704; J2795; J3010; J3370; J7030; J7120

== ENCOUNTER 2024-07-22 08:00 | Outpatient (RCR) | payer MEDICARE, OTHER, SELFPAY ==
--- NOTE | 2024-05-19 10:43 | OPREHPOC ---
Outpatient Therapy Plan of Care This is a Multidisciplinary Plan of Care that may contain components documented by all disciplines (PT, OT, and ST.) PT Problem 1 PT Problem #1 Knowledge Deficit PT Goal 1 Goal [place] with HEP Target Visit 4 PT Problem 2 PT Problem #2 Edema PT Goal 1 Goal Demonstrate 2cm+ reduction in knee edema for soft tissue healing Target Visit 10 PT Problem 3 PT Problem #3 Impaired Range of Motion PT Goal 1 Goal Achieve terminal R knee extension for even gait Target Visit 10 PT Goal 2 Goal Achieve 125 degrees R knee flexion for full functional mobility and foot clearence Target Visit 10 PT Problem 4 PT Problem #4 Impaired Gait PT Goal 1 Goal Ambulate independently with even stride length bilaterally Target Visit 10
--- NOTE | 2024-05-19 10:43 | PTOPEVAL1 ---
Assessment and note entered by Ralph Werner, PT Evaluation Information Assessment Status Evaluation Diagnosis Right TKA ICD-10 Condition Codes (PT) M25.561 Onset 04/26/24 Subjective Information Reports that he did home health prior to starting therapy today. He reports that he had a lot of constipation following surgery and was using a CPM machine to move his knee. Reports that he thinks he got up to about 105 on the CPM by the time he was done. He has a cane but does not like using it as he feels it makes him walk off center. Knee feels swollen most of the time and majority of pain is on the lateral knee. Reported Pain Level Pain Score 3: Self Report Assessment PT Clinical Summary Patient presents with sings and symptoms consistent with post operative TKA. Edema and loss of ROM noted as greatest deficits. Will benefit form skilled therapy to address these deficits for full functional gait improvement and return. Plan of Care Interventions Electrical Stimulation,Gait Training,Intermittent Compression,Manual Lymph Drainage,Manual Therapy, Neuro Re-education,Therapeutic Activities, Therapeutic Exercise PT Services Indicated Yes Treatment Frequency and 2x/week for 10 visits Duration These treatments will address the objective and functional deficits as defined above. The patient will be advanced safely and appropriately in order for the patient to progress towards his/her prior level of function. Additional exercises will be introduced and as well as a comprehensive home exercise program upon discharge, if needed, ?to ensure carryover of functional gains achieved in the clinic. This treatment plan has been reviewed and agreement upon by the patient.
--- NOTE | 2024-06-13 14:23 | PCPTNOTE ---
Patient was a No Show/No Call for today's appointment.
--- NOTE | 2024-06-30 10:53 | OPREHPOC ---
Outpatient Therapy Plan of Care This is a Multidisciplinary Plan of Care that may contain components documented by all disciplines (PT, OT, and ST.) PT Problem 1 PT Problem #1 Knowledge Deficit PT Goal 1 Goal / Goal Update [place] with HEP Target Visit 4 PT Goal 2 Goal / Goal Update 06-30-24 progress goal met continue to progress HEP and education Target Visit 16 PT Problem 2 PT Problem #2 Edema PT Goal 1 Goal / Goal Update Demonstrate 2cm+ reduction in knee edema for soft tissue healing Target Visit 10 Progress Met PT Goal 2 Goal / Goal Update 06-30-24 progress goal met NEW GOAL: * circumferential measurement at joint line of 44 cm Target Visit 16 PT Problem 3 PT Problem #3 Impaired Range of Motion PT Goal 1 Goal / Goal Update Achieve terminal R knee extension for even gait Target Visit 10 Progress Not Met PT Goal 2 Goal / Goal Update Achieve 125 degrees R knee flexion for full functional mobility and foot clearence 06-30-24 progress goal not met, but improved (-5') to 120' continue towards goals Target Visit 16 Progress Not Met PT Problem 4 PT Problem #4 Impaired Gait PT Goal 1 Goal / Goal Update Ambulate independently with even stride length bilaterally Target Visit 10 Progress Met PT Goal 2 Goal / Goal Update 06-30-24 progress goal met NEW GOAL: 1* pt ambulate with good weight shift to R LE 2* single leg standing R x 10 seconds with good stability 3* 2 minute walking test distance of 420' Target Visit 16
--- NOTE | 2024-06-30 10:53 | PTOPPROG ---
Assessment and note entered by Steph Miranda, PT Progress Report Assessment Status Progress Diagnosis Right TKA ICD-10 Condition Codes (PT) M25.561 Onset 04/26/24 Subjective Information knee is doing better, feel like need more therapy; no longer using the cane; doing the exercises at home PAIN: range in the past week: 2- 10/10 decrease pain: aleve, tylenol, voltaran cream increase pain: more activity and exercises reported activity tolerance/stand,walk about 2 hours; with sleeping, pain awaken 1x/night- take over the counter meds to sleep; Assessment PT Clinical Summary Johnie has received 10 PT sessions. Compared to the initial evaluation: pain from 2-5/10 to 2-10/10; LE functional scale self rating from 43 to 44% limitation in activity level; reported activity tolerance- walking/standing of 2 hours; sleeping is disrupted due to pain, awaken 1x/night; he is no longer using an assistive device; on stairs, requires a hand railing for alternate step pattern. ROM of R knee (-5') to 120'; increase strength of R hip and knee, but decreased single leg standing and standing bilateral PF; Education for HEP and gait training. The goals were partially met. Continue PT treatment. Plan of Care Interventions Electrical Stimulation,Hot Pack/Cold Pack,Manual Therapy,Neuro Re-education,Patient/Caregiver Education,Therapeutic Activities,Therapeutic Exercise,Ultrasound,Other Other Interventions taping PT Services Indicated Yes Treatment Frequency and 1-2x/week for 6 visits Duration These treatments will address the objective and functional deficits as defined above. The patient will be advanced safely and appropriately in order for the patient to progress towards his/her prior level of function. Additional exercises will be introduced and as well as a comprehensive home exercise program upon discharge, if needed, ?to ensure carryover of functional gains achieved in the clinic. This treatment plan has been reviewed and agreement upon by the patient.
--- NOTE | 2024-07-22 08:54 | PTOPDC ---
Assessment and note entered by Steph Miranda, PT Discharge Report Assessment Status Discharge Diagnosis Right TKA ICD-10 Condition Codes (PT) M25.561 Onset 04/26/24 Subjective Information doing the exercises at home; knee is better but still tight and stiff; use the cane on uneven ground; have practiced golf swing and it hurt his knee; Reported Pain Level Pain Score Self Report Pain Score Self Report Additional Pain Score Comments pain range in the past week: 1-5/10; achey, tight knee feels weird; increase pain: after walking/standing activity about 2 hours; decrease pain: move and change position, aleve, tylenol, voltaren,ice Assessment PT Clinical Summary Johnie has received 16 PT sessions. Compared to the last progress report: pain decrease at low rating from 2 to 1/10 and worst rating same at 5/10; LE functional scale from 44 to 31% limitation in activity level; 2 minute walking test distance,without assistive device, from 360 to 375'; indep on stairs without hand railing and alternate step pattern; gait with slight limp on R LE; edema with circumferential measurement at joint line 2 cm larger than L; decreased strength of bilateral ankle PF; increase strength of R hip and knee; indep with HEP; has not returned to golfing yet. ROM of R knee: active in sitting 0-125'. The goals were partially achieved. Discharge PT, to continue with his exercises at home, with increase activity as tolerated. Plan of Care PT Services Indicated No
== END 2024-07-22 10:10 | disposition home or self-care (01) ==
LOC: ANHPT 08:00
PROVIDERS: PCP Family Medicine; Visit Provider Orthopaedic Surgery
DX: Z47.1 Aftercare following joint replacement surgery (principal); Z96.651 Presence of right artificial knee joint
CPT/HCPCS: 97016; 97110; 97116; 97140; 97161; 97530

== ENCOUNTER 2024-07-25 09:39 | Outpatient (CLI) | payer MEDICARE, OTHER, SELFPAY ==
--- NOTE | ~2024-07-25 | XR_ITS ---
XR abdomen/kub 1V Ordering provider: Angel Naqvi MD History: . BPH, HX KIDNEY STONES F/U . Comparison: September 01, 2023. FINDINGS: BOWEL: Nonobstructive bowel gas pattern. ORGANOMEGALY: None. SIGNIFICANT PATHOLOGIC CALCIFICATIONS: Tiny calcifications projected over the left kidney. Follow-up advised. Double-J stent is removed in the interval. OTHER: No free air is seen under the diaphragm. Degenerative changes of the spine. IMPRESSION: NO ACUTE ABDOMINAL FINDINGS. Tiny calcification projected over the left kidney which may be a stone. Reviewed, dictated and finalized at location A.
== END 2024-07-25 09:40 | disposition home or self-care (01) ==
LOC: ANHIMG 09:45
PROVIDERS: PCP Family Medicine; Visit Provider Urology
DX: N40.1 Benign prostatic hyperplasia with lower urinary tract symptoms (principal); N20.0 Calculus of kidney
CPT/HCPCS: 74018

== ENCOUNTER 2025-05-25 13:29 | Outpatient (CLI) | payer MEDICARE, SELFPAY ==
--- NOTE | ~2025-05-25 | US_ITS ---
US arterial ankle brachial ind INDICATION: Abnormal cholesterol levels. Loss of hair, tingling and numbness in the left lower extremity TECHNIQUE: Segmental pressures and plethysmographic and Doppler waveforms of the brachial and lower extremity arteries were obtained. COMPARISON: None. FINDINGS: Right and left brachial artery pressures of 141 mm Hg and 134 mm Hg, respectively, are concordant (normal difference <= 30 mmHg). The right ankle-brachial index (DARRON) is 1.16 (normal >= 0.9-1.0). The right great toe-brachial index (TBI) is 0.79 (normal >= 0.60). The left DARRON is 1. The left TBI is 0.63. IMPRESSION: 1. Normal ankle-brachial indices. Reviewed, dictated and finalized at location O.
--- OUTSIDE RECORDS SUMMARY | 2025-05-25 13:44 | XMS_ITS | Clinical Summary ---
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 Gender Identity Not on file Sexual Orientation Not on file Plan of Treatment Health Maintenance Due Date Last Done Comments Hepatitis C Virus (HCV) Screening 1945 TdaP Immunization 1945 Respiratory Syncytial Virus (RSV) Immunization (Adult) (1 - 1-dose 75+ series) 2020 SARS-COV-2 Immunization ( - 2023-25 season) 2024 Influenza Immunization (#1) 06/05/20250 05/2020, 06/09/2019, 06/05/2018, Additional history exists Pneumococcal Immunization (50+ years) Completed 06/09/2019, 08/01/2016 Pneumococcal Immunization Combined Discontinued 06/09/2019, 08/01/2016 Zoster Immunization Completed 06/14/2019, 9 Hepatitis B Immunization Aged Out No longer eligible based on patient's age to complete this topic Human Papillomavirus (HPV) Immunization Aged Out No longer eligible based on patient's age to complete this topic Meningococcal Immunization (ACWY) Aged Out No longer eligible based on patient's age to complete this topic Rotavirus Immunization Aged Out No lo nger eligible based on patient's age to complete this topic
== END 2025-05-25 13:30 | disposition home or self-care (01) ==
PROVIDERS: PCP Family Medicine; Visit Provider Nurse Practitioner Family
DX: M79.89 Other specified soft tissue disorders (principal); R09.89 Other specified symptoms and signs involving the circulatory and respiratory systems
CPT/HCPCS: 93922

== ENCOUNTER 2025-06-21 09:57 | Outpatient (CLI) | payer MEDICARE, SELFPAY ==
--- NOTE | ~2025-06-21 | MR_ITS ---
EXAMINATION: MR lumbar spine wo con DATE: 06/21/2025 10:21 INDICATION: Paresthesias skin. Low back pain. TECHNIQUE: Magnetic resonance imaging (MRI) of the lumbar spine was performed without intravenous contrast. Sequences included sagittal T2-weighted FSE, sagittal T2-weighted FS FSE, sagittal T1-weighted FSE, and axial T2-weighted FSE. COMPARISON: None FINDINGS: There is 4 degrees levocurvature of lumbar spine. There is 3 mm anterolisthesis of L3 on L4. The orbits are normal. There is moderately decreased disc height at T12-L1, L1-L2, L2-L3, L3-L4, and L4-L5 and severely decreased disc height at L5-S1. There is ligamentum flavum hypertrophy at the di sc levels from L1-L2 through L4-L5. 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 The distal spinal cord signal intensity is normal. The conus medullaris is at L1. The following disc levels are specifically discussed: L1-L2: The disc is bulging. There is severe bilateral facet joint osteoarthritis. There is moderate bilateral neural foraminal stenosis. There is mild central canal stenosis. L2-L3: The disc is bulging and has an annular fissure. There is severe bilateral facet joint osteoarthritis. There is moderate bilateral neural foraminal stenosis. There is moderate central canal stenosis. L3-L4: The disc is bulging and has an annular fissure. There is severe bilateral facet joint osteoarthritis. There is moderate bilateral neural foraminal stenosis. There is severe central canal stenosis. L4-L5: The disc is bulging and has an annular fissure. There is severe bilateral facet joint osteoarthritis. There is moderate bilateral neural foraminal stenosis. There is mild central canal stenosis. L5-S1: The disc is bulging and has an annular fissure. There is moderate bilateral facet joint osteoarthritis. There is mild bilateral neural foraminal stenosis. There is mild central canal stenosis. IMPRESSION: 1. Severe lumbar spondylosis. Reviewed, dictated and finalized at location E.
== END 2025-06-21 09:58 | disposition home or self-care (01) ==
LOC: MICIMG 09:58
PROVIDERS: PCP Family Medicine; Visit Provider Nurse Practitioner Family
DX: R20.2 Paresthesia of skin (principal); M47.816 Spondylosis without myelopathy or radiculopathy, lumbar region
CPT/HCPCS: 72148

== ENCOUNTER 2025-08-01 11:23 | Outpatient (CLI) | payer MEDICARE, SELFPAY ==
--- NOTE | ~2025-08-01 | XR_ITS ---
EXAMINATION: XR abdomen/kub 1V, 08/01/2025 11:37 CDT HISTORY: Screening COMPARISON: No comparisons available. Technique: 3 view. Findings: Moderate fecal content, no dilated bowel loops, fecal content limits evaluation for renal calculi No free air. No abnormal calcifications No acute osseous abnormality. Impression: 1. No acute abnormality. Reviewed, dictated and finalized at location P. Impression: 1. No acute abnormality.
== END 2025-08-01 11:24 | disposition home or self-care (01) ==
LOC: MICIMG 11:25
PROVIDERS: PCP Family Medicine; Visit Provider Urology
DX: Z87.442 Personal history of urinary calculi (principal)
CPT/HCPCS: 74018